=== PATIENT | male | born 1950 | race Caucasian/White ===

== ENCOUNTER 2017-07-21 10:47 | Emergency (ER) | payer MEDICARE, OTHER, SELFPAY | END 2017-07-21 12:23 | disposition home or self-care (01) | PROVIDERS: Emergency Provider Emergency Medicine; Family Provider Family Medicine; PCP Family Medicine; Visit Provider Emergency Medicine | DX: S51.811A Laceration without foreign body of right forearm, initial encounter (principal); W45.8XXA Other foreign body or object entering through skin, initial encounter; W22.8XXA Striking against or struck by other objects, initial encounter; Y93.H1 Activity, digging, shoveling and raking; Y92.009 Unspecified place in unspecified non-institutional (private) residence as the place of occurrence of the external cause; Z23 Encounter for immunization | CPT/HCPCS: 12004; 90471; 90714; 99282 ==

== ENCOUNTER → 2020-06-29 09:55 | Outpatient (CLI) | payer MEDICARE, SELFPAY | PROVIDERS: PCP Family Medicine; Visit Provider Family Medicine | DX: Z03.818 Encounter for observation for suspected exposure to other biological agents ruled out (principal) | CPT/HCPCS: U0003 ==

== ENCOUNTER → 2020-11-08 15:30 | Outpatient (CLI) | payer MEDICARE, SELFPAY ==
--- NOTE | 2020-11-08 15:35 | XR_ITS ---
PROCEDURE: XR SHOULDER LT MIN 2V CLINICAL INDICATION: M77.8 Pain COMPARISON: No exams were available for comparison FINDINGS: No fracture or dislocation. No lytic or blastic change. There is normal mineralization. There are mild osteoarthritic changes of the acromioclavicular joint and glenohumeral joint. No significant subacromial stenosis. Other findings:None. IMPRESSION: Mild osteoarthritis Dictated by: Bhavin Martinez MD 11/08/2020 15:48 Bhavin Martinez MD in [place] 11/08/2020 15:48
== END ==
PROVIDERS: PCP Family Medicine; Visit Provider Family Medicine
DX: M77.8 Other enthesopathies, not elsewhere classified (principal)
CPT/HCPCS: 73030

== ENCOUNTER → 2020-11-12 09:19 | Outpatient (CLI) | payer MEDICARE, SELFPAY | PROVIDERS: Visit Provider Family Medicine | DX: Z00.00 Encounter for general adult medical examination without abnormal findings (principal); Z12.5 Encounter for screening for malignant neoplasm of prostate ==

== ENCOUNTER → 2020-11-13 09:23 | Outpatient (CLI) | payer MEDICARE, SELFPAY ==
[2020-11-13 11:07] LABS: Alanine Aminotransferase 23 U/L (12-78); Albumin Level 4.5 g/dl (3.5-5.0); Albumin/Globulin Ratio 1.7 (1.1-1.8); Alkaline Phosphatase 67 U/L (38-126); Anion Gap 12.7 mEq/L (5-15); Aspartate Amino Transferase 28 U/L (17-59); Bilirubin,Total 0.7 mg/dl (0.2-1.3); Blood Urea Nitrogen 28 mg/dl (9-20); Carbon Dioxide 29 mmol/L (22.0-30.0); Chloride 104 mmol/L (98-107); Chol/HDL Ratio 2.6 (1-3.5); Cholesterol 196 mg/dl (140-200); Estimated Glomerular Filt Rate 74 ml/min (>60); GFR (African American) 89 ML/MIN (>60); Globulin 2.6 g/dL (1.3-3.2); Glucose 106 mg/dl (74-100); HDL Cholesterol 76 mg/dl (40-60); Potassium 5.7 mmoL/L (3.5-5.1); Sodium 140 mmol/L (136-145); Total Protein,Serum 7.1 g/dl (6.3-8.2); Triglycerides 66 mg/dl (30-150); VLDL Cholesterol 13 mg/dL (0-40)
[2020-11-13 11:19] LABS: Direct LDL Cholesterol 90.47 mg/dL (100-129)
[2020-11-13 11:38] LABS: Prostate Specific Ag Screen 1.9 ng/ml (0.0-4.0)
[2020-11-13 12:02] LABS: Hemoglobin A1C 5.3 % (4.0-6.0)
== END ==
PROVIDERS: Visit Provider Family Medicine
DX: Z00.00 Encounter for general adult medical examination without abnormal findings (principal); E11.9 Type 2 diabetes mellitus without complications; E78.5 Hyperlipidemia, unspecified; Z12.5 Encounter for screening for malignant neoplasm of prostate
CPT/HCPCS: 36415; 80053; 80061; 83036; G0103

== ENCOUNTER → 2020-11-15 08:23 | Outpatient (CLI) | payer MEDICARE, SELFPAY ==
--- NOTE | 2020-11-15 08:30 | CT_ITS ---
PROCEDURE: CT LUNG SCREENING CLINICAL INDICATION: H/O NICOTINE DEPENDENCE Former smoker Quit smoking 5 years ago 47 pack year smoking history No prior COMPARISON: No exams were available for comparison TECHNIQUE: The exam was performed on a GE Light Speed [address] scanner using 2.90 mGy CTDI. A low dose helical CT CHEST was performed on a multi-detector scanner. All CT scans at the facility use one or more dose reduction, viz: automated exposure control, ma/kV adjustment per patient size (including targeted exams where dose is matched to indication, i.e. head), or iterative reconstruction technique. The LDCT was performed in a facility that meets the criteria for the screening program. Data regarding this exam was submitted to ACR which is an approved registry. The order for this exam indicates that it came as a result of a lung cancer screening counseling shard decision-making visit that included all the elements required of such a visit including smoking cessation. The radiologist interpreting this exam meets the CMS criteria for the LDCT lung cancer screening program. The exam is reported using the Lung-RADS classification scale and reported to the ACR registry. NOTE: This study was performed for the specific purposes of lung cancer screening and is not an alternative to diagnostic chest CT. RADIATION DOSE: CTDI vol(CT dose Index-volume) = 2.90mG DLP (Dose Length Product) = 110.46 mGcm FINDINGS: COPD. Old granulomatous disease. No suspicious pulmonary nodule apparent. OTHER FINDINGS: Coronary artery calcification. A large hypodense lesion is present in the hepatic dome measuring 7 x 5.5 cm. This is approximately 8 Hounsfield units consistent with a hepatic cyst. An 8 mm calcific density is present in the pancreatic head IMPRESSION: Lung-RADS Category 1 Negative Follow-up: Continue annual screening with LDCT in 12 months Dictated by: Bhavin Martinez MD 11/28/2020 14:55 Bhavin Martinez MD in [place] 11/28/2020 14:55
== END ==
PROVIDERS: PCP Family Medicine; Visit Provider Family Medicine
DX: Z87.891 Personal history of nicotine dependence (principal); Z12.2 Encounter for screening for malignant neoplasm of respiratory organs
CPT/HCPCS: 71271

== ENCOUNTER → 2021-01-08 13:34 | Outpatient (CLI) | payer MEDICARE, SELFPAY ==
[2021-01-08 15:26] LABS: Blood Urea Nitrogen 19 mg/dl (9-20); Estimated Glomerular Filt Rate 74 ml/min (>60); GFR (African American) 89 ML/MIN (>60)
== END ==
PROVIDERS: Visit Provider Family Medicine
DX: Z01.818 Encounter for other preprocedural examination (principal)
CPT/HCPCS: 36415; 82565; 84520

== ENCOUNTER → 2021-01-17 08:56 | Outpatient (CLI) | payer MEDICARE, SELFPAY ==
--- NOTE | 2021-01-17 08:59 | CT_ITS ---
PROCEDURE: CT ABDOMEN PELVIS W CON CLINICAL INDICATION: LESION OF PANCREAS COMPARISON: CT ABDPELW CT abdomen pelvis w con from 12/16/[address] LUNG SCREENING from 11/15/2020 TECHNIQUE: IV Contrast: 75ML Isovue 370 Oral Contrast None Axial images obtained with sagittal and coronal reformats. All CT scans at the facility use one or more dose reduction, viz: automated exposure control, ma/kV adjustment per patient size (including targeted exams where dose is matched to indication, i.e. head), or iterative reconstruction technique. FINDINGS: Lung bases show some scar versus atelectasis. Large cyst in the right lobe of the liver again noted. Mild diffuse fatty infiltration of the liver. No focal hepatic or splenic lesions otherwise noted. Gallbladder adrenal glands are normal. Small calcification in the head of the pancreas again noted. There is a cystic lesion in the head of the pancreas measuring about 2.5 centimeters x 1.2 centimeters with mild dilatation of the pancreatic duct. This may represent a pancreatic IPMN or other cystic pancreatic lesion. At this point I would recommend MRI abdomen with and without IV contrast for further assessment. Small left renal cortical cyst noted. Kidneys otherwise normal. No upper abdominal lymphadenopathy. Some calcification of the abdominal aorta without aneurysm. Kidneys drain normally. Bladder is normal. There is no distended large or small bowel or bowel wall thickening. Moderate amount of stool throughout the colon. Few diverticula on the colon without diverticulitis. Appendix is normal. No enlarged iliac or inguinal chain lymph nodes. No inguinal or femoral hernias. There are moderate diffuse degenerative changes of the lumbar spine. No acute bony abnormality. IMPRESSION: Cystic lesion in the head of the pancreas measuring about 2.5 centimeters x 1.2 centimeters with mild dilatation of the pancreatic duct. This may represent a pancreatic IPMN or other cystic pancreatic lesion. MRI abdomen with and without IV contrast recommended for further assessment. Large cyst in the right lobe of the liver again noted. Mild diffuse fatty infiltration of the liver. No free intraperitoneal air or fluid. Small left renal cortical cyst. Scattered diverticula on the colon without diverticulitis. Moderate amount of stool throughout the colon. Dictated by: Royal Pastor MD 01/17/2021 09:49 Royal Pastor MD in [place] 01/17/2021 09:49
== END ==
PROVIDERS: PCP Family Medicine; Visit Provider Family Medicine
DX: K86.9 Disease of pancreas, unspecified (principal)
CPT/HCPCS: 74177; Q9967

== ENCOUNTER → 2021-02-07 10:43 | Outpatient (CLI) | payer MEDICARE, SELFPAY | PROVIDERS: Visit Provider Internal Medicine Gastroenterology | DX: Z01.812 Encounter for preprocedural laboratory examination (principal); Z20.822 Contact with and (suspected) exposure to COVID-19 | CPT/HCPCS: U0003 ==

== ENCOUNTER 2021-02-08 12:02 | Day surgery (SDC) | payer MEDICARE, SELFPAY ==
[2021-02-05 09:16] VITALS: BMI 24.3
[2021-02-08] VITALS (7 sets, daily range): BP systolic 83–145; BP diastolic 48–80; PULSE 51–89; RESP 16–18; TEMP 36.6–36.8; O2SAT 95–99
--- NOTE | 2021-02-08 12:13 | FL_ITS ---
PROCEDURE: FL ERCP CLINICAL INDICATION: abnormal diagnostic findings COMPARISON: CT CT ABDOMEN PELVIS W CON from 01/17/2021 FINDINGS: Fluoroscopy time: 5 minutes and 30 seconds. Contrast was injected into the common bile duct with normal caliber. No evidence of common duct stones. Pancreatic duct could not be safely cannulated due to an impacted stone as seen on the CT scan. IMPRESSION: Unremarkable biliary tree. Pancreatic ductal system was not able to be imaged. Dictated by: Bhavin Martinez MD 02/11/2021 10:49 Bhavin Martinez MD in [place] 02/11/2021 10:49
--- NOTE | 2021-02-08 12:43 | HMH.ANESCL ---
[facility] Anesthesia Checklist - Patient Identification Patient Identification: Arm Band - Structural Data Admitted From: Home Planned Operative Procedure/s: ERCP Consent for Planned Operative Procedure(s) Verified: Yes - NPO Status Verified Time NPO: 00:00 - Airway Assessment C-Spine Mobility Assessed: Yes TMJ Mobility Assessed: Yes Dentition: Good Dentition - Neurological Assessment Level of Consciousness: Awake Hx Seizures: No Numbness or tingling in extremities: No - Anesthesia Plan Anesthesia Risk discussed: Yes Anesthesia Plan: Verified ASA Class: I Anesthesia Type: MAC [facility] History I have reviewed the patient's past medical history: Yes Medical History: Denies:: Cancer, Diabetes Mellitus Type 1, Diabetes Mellitus Type 2, MRSA, Seizures *Have you ever received a pneumonia vaccine?: Yes *Have you received a flu vaccine this season?: Yes Anesthesia experience/problems:: None Laterality Cases: Bilateral: Cataract Amputation: No - *Social History Last grade of school completed: Advanced degree Smoking Status: Never smoker Alcohol Intake: current Alcohol Intake Frequency:: holidays/special occasions only Substance Use Type: denies use *Occupational Status:: retired Housing: house *Travel in the last 8 weeks: None Family Hx:: Unable to obtain, No significant family history
--- NOTE | 2021-02-08 13:51 | HMH.PROC ---
[facility] Procedure Note Procedure Note:: ERCP procedure Report: Endoscopic retrograde cholangiopancreatography with biliary sphincterotomy Endoscopist: Westley Gunter II, MD Referring Physician: Isaac Dunaway MD Date of Procedure: February 08, 2021 Equipment: Olympus 180 side viewing endoscope duodenoscope Sedation: MAC sedation Indication: Mr. Valencia is a 70-year-old gentleman who had a recent CT scan of the abdomen with contrast for CT lung screening. This did show an initial radiology reading that showed a possible cystic lesion in the head of the pancreas. After reviewing the CAT scan there was a clear change in the pancreas over 2 years with marked pancreatic ductal dilation with a calcified stone in the head of the pancreas but not within the biliary system. There was no cystic lesion identified. The patient has no abdominal complaints. The patient did have a colonoscopy with me in October 2016 and had 5 colon polyps (small serrated adenomas x4 and tubular adenoma x1) which were removed. Procedure: Prior to the procedure, a history and physical exam was performed, and patient's medications and allergies were reviewed. The risks, benefits and alternatives of the sedation and procedure were discussed with the patient. All questions were answered and informed consent was obtained. The patient was brought to the fluoroscopic radiology room. Patient identification and proposed procedure were verified by the physician and the nurse. The patient was placed in a swimmer's position between left lateral decubitus and prone position and the scope was passed under direct vision. Throughout the procedure, the patient's blood pressure, pulse, and oxygen saturations were monitored continuously. The ERCP was accomplished without difficulty. The patient tolerated the procedure well. Findings: The side-viewing duodenal scope was passed directly into the upper esophagus and advanced to the second portion of the duodenum. There was a very small hiatal hernia with nonsignificant lower esophageal ring. There was mild reactive gastropathy. The ampulla was well visualized in the second portion. The common bile duct and pancreatic duct were both cannulated. The cholangiogram showed normal filling of the biliary system with a 3 to 4 mm common bile duct and normal filling of the intrahepatic biliary system. There were no strictures or filling defects within the biliary system. The pancreatic duct was cannulated but the guidewire could not be passed beyond the head of the pancreas. There was clearly an impacted stone within the a pancreatic ductal head. Even with improved access using biliary sphincterotomy, a guidewire could not be passed beyond the pancreatic ductal stone. Because of this impaction, further treatment was not performed. Impression: 1. 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 This can occur in the setting of chronic pancreatitis. If these are deeply impacted, removal mechanically with the balloon poses greater risk than electrohydraulic lithotripsy. The patient is asymptomatic but I do feel that there is a significant risk of progression towards chronic pancreatitis with endocrine/exocrine insufficiency. I am going to obtain CA 19-9 and pancreatic chemistries today. The patient's liver chemistries are normal.
[2021-02-08 15:12] LABS: Amylase 72 U/L (30-110); Lipase 274 U/L (23-300)
[2021-02-10 08:37] LABS: CA 19-9 16 U/mL (0-35); CEA 2.1 ng/mL (0.0-4.7)
== END 2021-02-08 15:00 | disposition home or self-care (01) ==
LOC: OUTP 12:03
PROVIDERS: PCP Family Medicine; Visit Provider Internal Medicine Gastroenterology
PROC: (CPT 43277; principal; 2021-02-08 13:00)
DX: R93.5 Abnormal findings on diagnostic imaging of other abdominal regions, including retroperitoneum (principal); K86.89 Other specified diseases of pancreas; C25.0 Malignant neoplasm of head of pancreas
CPT/HCPCS: 43277; 36415; 74330; 82150; 82378; 83690; 86316; J2704

== ENCOUNTER → 2021-04-11 08:02 | Outpatient (CLI) | payer MEDICARE, SELFPAY ==
[2021-04-11 08:31] LABS: Blood Urea Nitrogen 26 mg/dl (9-20); Estimated Glomerular Filt Rate 74 ml/min (>60); GFR (African American) 89 ML/MIN (>60)
--- NOTE | 2021-04-11 08:36 | MR_ITS ---
PROCEDURE INFORMATION: Exam: MR Abdomen Without and With Contrast Exam date and time: 04/11/2021 8:36 AM Age: 71 years old Clinical indication: Abdominal pain; Generalized; Patient HX: F/u to CT scan done 01/17/2021, cystic lesion in the head of the pancreas measuring about 2.5 centimeters x 1.2 centimeters with mild dilatation of the pancreatic duct. This May represent a pancreatic ipmn or other cystic pancreatic lesion. Mri abdomen with and without iv contrast recommended for further assessment. 16 ml prohance used for contrast bun 26 creat 1 gfr 74; Additional info: Pancreatic mass TECHNIQUE: Imaging protocol: MR of the abdomen without and with intravenous contrast. Contrast material: PROHANCE; Contrast volume: 16 ml; Contrast route: IV; COMPARISON: CT ABDOMEN PELVIS W CON 01/17/2021 9:12 AM FINDINGS: Liver: There is a large central cyst identified within the liver. This is within the right hepatic lobe. It measures 8.4 x 7.0 cm in size. Gallbladder and bile ducts: Unremarkable. No stones. No ductal dilation. Pancreas: There is a mass present within the pancreatic head. This is at the junction of the pancreatic head and the uncinate process. It corresponds to abnormality seen on computed tomography of the abdomen and pelvis with contrast 01/17/2021. It measures 2.3 x 2.7 cm in size. On the CT examination there is a coarse calcification associated with the mass. There is dilatation of the main pancreatic duct distal to the mass. Cystic components are difficult to appreciate on the MR examination. Post gadolinium images demonstrate enhancement of the mass. Primary diagnostic consideration would be a primary mass such as a pancreatic neuroendocrine tumor or a papillary mucinous neoplasm. The possibility of a benign lesion such as focal chronic pancreatitis is less likely however not entirely excluded. Spleen: Unremarkable. No splenomegaly. Adrenal glands: Unremarkable. No mass. Kidneys and ureters: There is a 1.4 cm peripelvic cyst of the interpolar region of the left kidney. It is benign in nature. No follow-up imaging is recommended. No solid mass. No hydronephrosis. Stomach and bowel: Visualized stomach and intestines are unremarkable. Intraperitoneal space: No free fluid. Arteries: No abdominal aortic aneurysm. Bones/joints: Unremarkable. Soft tissues: Unremarkable. IMPRESSION: There is a 2.3 x 2.7 cm mass within the pancreatic head which contains central coarse calcification. There is enhancement after gadolinium administration. There is dilatation of the main pancreatic duct distal to the mass. Primary diagnostic consideration would be a calcified neoplasm of the pancreatic head. Considerations include a pancreatic neuroendocrine tumor or a papillary mucinous neoplasm. The possibility of unusual presentation of chronic pancreatitis is less likely however not entirely excluded.
== END ==
PROVIDERS: PCP Family Medicine; Visit Provider Internal Medicine Gastroenterology
DX: K86.89 Other specified diseases of pancreas (principal); R93.3 Abnormal findings on diagnostic imaging of other parts of digestive tract
CPT/HCPCS: 36415; 74183; 76376; 82565; 84520; A9576

== ENCOUNTER → 2021-04-22 10:48 | Outpatient (CLI) | payer MEDICARE, SELFPAY | PROVIDERS: PCP Family Medicine; Visit Provider Nurse Practitioner | DX: Z20.822 Contact with and (suspected) exposure to COVID-19 (principal) | CPT/HCPCS: C9803; U0003; U0005 ==

== ENCOUNTER → 2021-04-25 11:43 | Outpatient (CLI) | payer MEDICARE, SELFPAY | PROVIDERS: PCP Family Medicine; Visit Provider Nurse Practitioner | DX: Z20.822 Contact with and (suspected) exposure to COVID-19 (principal) | CPT/HCPCS: C9803; U0003; U0005 ==

== ENCOUNTER → 2021-08-05 14:51 | Outpatient (CLI) | payer MEDICARE, SELFPAY ==
--- NOTE | 2021-08-05 15:07 | XR_ITS ---
FINAL REPORT TECHNIQUE: Chest PA & Lateral CLINICAL HISTORY: PRIOR SMOKER,PRE-OP FINDINGS: 2 views of the chest were performed. The heart size is normal. The mediastinum is within normal limits. There is no acute cardiopulmonary process. There are no pleural effusions. There is no pneumothorax. The bony thorax appears intact. IMPRESSION: No acute cardiopulmonary process. Reviewed, Interpreted and Dictated by Alvaro Cohen MD Transcribed by Noemy Portillo Authenticated by Alvaro Cohen MD on 08/05/2021 04:58:21 PM [facility]
--- NOTE | 2021-08-05 15:38 | ECG_ITS ---
APPROVED REPORT Exam: Resting ECG HR:60 bpm ECG Measurements Heart Rate 60 AXES FL 156 P 62 QRSd 84 QRS -33 QT 422 T 19 QTc 422 Conclusion Normal sinus rhythm Possible Left atrial enlargement Left axis deviation Left ventricular hypertrophy Abnormal ECG Electronically signed by : Ben Mario MD 08/05/2021 21:33:10
== END ==
PROVIDERS: PCP Family Medicine; Visit Provider Family Medicine
DX: Z01.818 Encounter for other preprocedural examination (principal)
CPT/HCPCS: 71046; 93005

== ENCOUNTER → 2021-08-06 09:58 | Outpatient (CLI) | payer MEDICARE, SELFPAY ==
[2021-08-06 10:51] LABS: Chloride 102 mmol/L (98-107)
[2021-08-06 10:52] LABS: Potassium 4.5 mmoL/L (3.5-5.1); Sodium 139 mmol/L (136-145)
[2021-08-06 10:54] LABS: Alanine Aminotransferase 21 U/L (12-78); Alkaline Phosphatase 63 U/L (38-126); Anion Gap 10.5 mEq/L (5-15); Aspartate Amino Transferase 31 U/L (17-59); Bilirubin,Total 0.6 mg/dl (0.2-1.3); Blood Urea Nitrogen 28 mg/dl (9-20); Carbon Dioxide 31 mmol/L (22.0-30.0); Estimated Glomerular Filt Rate 74 ml/min (>60); GFR (African American) 89 ML/MIN (>60)
[2021-08-06 10:55] LABS: Albumin Level 4.1 g/dl (3.5-5.0); Albumin/Globulin Ratio 1.6 (1.1-1.8); Calcium 9.2 mg/dl (8.4-10.2); Globulin 2.5 g/dL (1.3-3.2); Glucose 104 mg/dl (74-100); Total Protein,Serum 6.6 g/dl (6.3-8.2)
[2021-08-06 12:09] LABS: Basophils # 0.1 K/mm3 (0-0.2); Basophils % 1.1 % (0.1-2.0); Eosinophils # 0.2 K/mm3 (0.0-0.4); Eosinophils % 3.1 % (0.1-12.0); Hemoglobin 14.7 g/dL (14.1-18.0); Lymphocytes # 1.5 K/mm3 (0.7-4.5); Lymphocytes % 27.9 % (10-50); Mean Corpuscular HGB Conc 32.7 g/dL (31.8-35.4); Mean Corpuscular Hemoglobin 30.8 pg (27.0-31.2); Mean Corpuscular Volume 94.3 fl (80-94); Mean Platelet Volume 8.9 fl (7.4-10.4); Monocytes # 0.3 K/mm3 (0.1-1.0); Monocytes % 5.8 % (1.7-9.3); Neutrophils # 3.3 K/mm3 (1.8-7.8); Neutrophils % 62.2 % (37.0-80.0); Platelet Count 208 K/mm3 (142-424); Red Blood Count 4.77 M/mm3 (4.60-6.20); Red Cell Distribution Width 13.2 % (11.5-17.5); White Blood Count 5.3 K/mm3 (4.8-10.8)
== END ==
PROVIDERS: Visit Provider Family Medicine
DX: Z01.818 Encounter for other preprocedural examination (principal); Z51.81 Encounter for therapeutic drug level monitoring
CPT/HCPCS: 80053; 85025

== ENCOUNTER → 2021-08-07 08:31 | Outpatient (CLI) | payer MEDICARE, SELFPAY ==
[2021-08-07 09:07] LABS: Activated Partial Thrombo Time 25.3 seconds (22.8-30.6); INR 1.07 (0.9-1.1)
== END ==
PROVIDERS: Visit Provider Family Medicine
DX: Z01.818 Encounter for other preprocedural examination (principal); Z51.81 Encounter for therapeutic drug level monitoring
CPT/HCPCS: 85610; 85730

== ENCOUNTER → 2021-08-08 11:03 | Outpatient (CLI) | payer MEDICARE, SELFPAY | PROVIDERS: Visit Provider Nurse Practitioner | DX: Z20.822 Contact with and (suspected) exposure to COVID-19 (principal) | CPT/HCPCS: C9803; U0003; U0005 ==

== ENCOUNTER → 2021-08-09 13:13 | Outpatient (CLI) | payer MEDICARE, SELFPAY ==
--- NOTE | 2021-08-09 13:16 | CA_ITS ---
APPROVED REPORT EXAM: Comprehensive 2D, Doppler, and color-flow Echocardiogram Change Control Manager: Patricia Lackey, RT(R) Ht: 5 ft 10 in Wt: 172lbs BSA: 1.96 BP: 118/78 mmHg Indications: preop clearance, HTN, abn EKG 2D Dimensions LVOT 1.87 cm (M/F) 1.5-2.5 M-Mode Dimensions RVDd 2.83 cm (0.9-2.6) LA Diam 3.44 cm (1.9-4.0) LVDd 4.55 cm (3.5-5.7) Ao Diam 3.30 cm (2.0-3.7) LVDs 3.37 cm (3.5-5.7) IVSd 0.75 cm (0.6-1.1) PWd 1.04 cm (0.6-1.1) EF (Teich) 51.10% FS 25.90% EDV (Teich) 94.90 mL ESV (Teich) 46.40 mL LV Diastology E Decel Time 220.00 (160-240 msec) E/A Ratio 0.7 MED E' 8.90 (< 7 cm/sec) E'/MED E' Ratio 6.70 (>14) LAT E' 11.40 (<10 cm/sec) E/LAT E' Ratio 5.23 (>14) Mitral Valve MV E Max Deon. 60.00 (40-130 cm/s) MV A Velocity 84.00 (40-130 cm/s) E/A Ratio 0.71 MV Decel. Time 220.00 (160-240 ms) MV PHT 64.00 ms Left Ventricle Atrium is mildly enlarged, left ventricle is normal size, mild concentric left ventricular hypertrophy, visually estimated ejection fraction 55% with no regional wall motion abnormality, grade 1 diastolic dysfunction seen without tissue Doppler evidence of raise left atrial pressure. Right Ventricle Right atrium and right ventricle are normal size and contractility. Aortic Valve Aortic valve is minimally thickened and calcified without aortic stenosis or aortic insufficiency. Mitral Valve Mitral valve is grossly normal, there is trace mitral regurgitation. Tricuspid Valve Tricuspid valve grossly normal, there is trace tricuspid regurgitation, tricuspid regurgitation jet velocity is inadequate for calculation of the right ventricular systolic pressure. Pulmonic Valve Pulmonic valve is poorly visualized. Great Vessels Aortic root is normal size. Inferior vena cava is normal size with normal inspiratory collapse. Pericardium Significant pericardial effusion noted. Conclusion 1. Normal left ventricular size, preserved left ventricular systolic function, visually estimated ejection fraction 55% with no regional wall motion abnormality, grade 1 diastolic dysfunction seen without tissue Doppler evidence of raise left atrial pressure. 2. Trace mitral and tricuspid regurgitation. 3. No significant pericardial effusion. 4. Inferior vena cava is normal size with normal inspiratory collapse. Electronically signed by : Eliel Foreman MD 08/09/2021 14:26:32
== END ==
PROVIDERS: PCP Family Medicine; Visit Provider Family Medicine
DX: I51.7 Cardiomegaly (principal); R94.31 Abnormal electrocardiogram [ECG] [EKG]
CPT/HCPCS: 93306

== ENCOUNTER → 2021-12-06 13:05 | Outpatient (CLI) | payer MEDICARE, SELFPAY | PROVIDERS: PCP Family Medicine; Visit Provider Family Medicine | DX: U07.1 COVID-19 (principal) | CPT/HCPCS: C9803; U0003; U0005 ==

== ENCOUNTER 2023-08-05 08:27 | Outpatient (CLI) | payer MEDICARE, SELFPAY ==
[2023-08-05 08:57] LABS: Basophils % 0.2 % (0.1-2.0); Eosinophils # 0.1 K/mm3 (0.0-0.4); Eosinophils % 0.5 % (0.1-12.0); Hematocrit 46.8 % (42.0-52.0); Hemoglobin 15.7 g/dL (14.1-18.0); Lymphocytes % 11.6 % (10-50); Mean Corpuscular HGB Conc 33.7 g/dL (31.8-35.4); Mean Corpuscular Hemoglobin 30.7 pg (27.0-31.2); Mean Platelet Volume 8.6 fl (7.4-10.4); Monocytes # 0.4 K/mm3 (0.1-1.0); Monocytes % 4.2 % (1.7-9.3); Neutrophils # 7.4 K/mm3 (1.8-7.8); Neutrophils % 83.5 % (37.0-80.0); Platelet Count 206 K/mm3 (142-424); Red Blood Count 5.14 M/mm3 (4.60-6.20); White Blood Count 8.9 K/mm3 (4.8-10.8)
[2023-08-05 09:45] LABS: Alanine Aminotransferase 30 U/L (12-78); Albumin Level 4.6 g/dl (3.5-5.0); Albumin/Globulin Ratio 1.8 (1.1-1.8); Alkaline Phosphatase 66 U/L (38-126); Anion Gap 10.8 mEq/L (5-15); Aspartate Amino Transferase 35 U/L (17-59); Bilirubin,Total 0.7 mg/dl (0.2-1.3); Blood Urea Nitrogen 31 mg/dl (9-20); Calcium 9.3 mg/dl (8.4-10.2); Carbon Dioxide 28 mmol/L (22.0-30.0); Chloride 101 mmol/L (98-107); Chol/HDL Ratio 3.1 (1-3.5); Cholesterol 187 mg/dl (140-200); Estimated Glomerular Filt Rate 73 ml/min (>60); GFR (African American) 89 ML/MIN (>60); Globulin 2.5 g/dL (1.3-3.2); Glucose 115 mg/dl (74-100); HDL Cholesterol 60 mg/dl (40-60); Potassium 4.8 mmoL/L (3.5-5.1); Sodium 135 mmol/L (136-145); Total Protein,Serum 7.1 g/dl (6.3-8.2); Triglycerides 46 mg/dl (30-150); VLDL Cholesterol 9 mg/dL (0-40)
[2023-08-05 09:56] LABS: Direct LDL Cholesterol 96.09 mg/dL (100-129)
[2023-08-05 10:16] LABS: Prostate Specific Ag Screen 1.7 ng/ml (0.0-4.0)
== END 2023-08-05 23:59 ==
LOC: LAB 08:28
PROVIDERS: PCP Family Medicine; Visit Provider Family Medicine
DX: R59.0 Localized enlarged lymph nodes; Z13.220 Encounter for screening for lipoid disorders; Z12.5 Encounter for screening for malignant neoplasm of prostate; I10 Essential (primary) hypertension
CPT/HCPCS: 36415; 80053; 80061; 85025; G0103

== ENCOUNTER 2023-08-20 08:25 | Outpatient (CLI) | payer MEDICARE, SELFPAY ==
--- NOTE | 2023-08-20 08:28 | CT_ITS ---
FINAL REPORT TECHNIQUE: Thin section axial images were obtained from the lung apices to the upper abdomen by computed tomography. Reformatted images were obtained and reviewed. This study was performed with techniques to keep radiation doses al low as reasonably achievable (ALARA). Individualized dose reduction techniques using automated exposure control or adjustment of mA and/or kV according to the patient's size were employed. CLINICAL HISTORY: H/O TOBACCO USE former smoker x 10 yrs ago 1.5 packs for 42 years COMPARISON: 11/15/2020 FINDINGS: CHEST CT LOW DOSE CTDI vol (mGy): 2.90 DLP (mGy-cm): 114.64 There is moderate coronary artery calcification. There is no axillary adenopathy. There is no mediastinal or hilar mass or adenopathy. The heart is normal in size. There is no pericardial or pleural effusion. There is mild pulmonary scarring. There is a 3 mm nodule at the major fissure which is stable, likely intra fissural node. Limited images of the upper abdomen reveal a large low-attenuation mass in the liver dome measuring 10 cm, was 7.2 cm, favor large cyst. Multiple pancreatic calcifications are identified consistent with chronic pancreatitis. IMPRESSION: Lung-RADS category 1S. Recommend 12 month follow up low dose chest CT. Modifier S: Large cyst in the liver dome. Postcontrast CT or MRI could further evaluate. Chronic pancreatitis. Reviewed, Interpreted and Dictated by Jeovany Cavazos III, MD Transcribed by Deidre Ware Authenticated and [facility]
== END 2023-08-20 23:59 ==
LOC: RAD 08:25
PROVIDERS: PCP Family Medicine; Visit Provider Family Medicine
DX: Z87.891 Personal history of nicotine dependence (principal)
CPT/HCPCS: 71271

== ENCOUNTER 2023-09-14 13:01 | Outpatient (CLI) | payer MEDICARE, SELFPAY ==
--- NOTE | 2023-09-14 13:01 | CT_ITS ---
FINAL REPORT TECHNIQUE: Thin section axial CT images with coronal and sagittal reformats were performed through the neck. This study was performed with techniques to keep radiation doses as low as reasonably achievable (ALARA). Individualized dose reduction techniques using automated exposure control or adjustment of mA and/or kV according to the patient''s size were employed. CLINICAL HISTORY: swollen LEFT submandibular galnd FINDINGS: There is a retention cyst or polyp in the floor of the left maxillary sinus. Stranding is seen adjacent to the left submandibular gland consistent with sialadenitis. There is a 6 mm calcification at the left floor of the mouth consistent with stone in the left Hampton's duct. There are coronary artery calcifications noted. No adenopathy or mass lesion is present . Larynx is unremarkable. Thyroid gland is unremarkable. IMPRESSION: Stranding adjacent to the left submandibular gland consistent with sialoadenitis. 6 mm stone in the left Hampton's duct. Reviewed, Interpreted and Dictated by Jeovany Cavazos III, MD Transcribed by Carmen Mc Authenticated and [facility]
== END 2023-09-14 23:59 ==
LOC: RAD 13:01
PROVIDERS: PCP Family Medicine; Visit Provider Student in an Organized Health Care Education/Training Program
DX: K11.20 Sialoadenitis, unspecified (principal)
CPT/HCPCS: 70490

== ENCOUNTER 2023-10-06 08:34 | Outpatient (CLI) | payer MEDICARE, SELFPAY ==
--- NOTE | 2023-10-06 08:41 | XR_ITS ---
FINAL REPORT CLINICAL HISTORY: rt shoulder/arm pain FINDINGS: Right shoulder Three views were obtained. There is no acute fracture or dislocation. There is mild AC and glenohumeral joint degenerative change. No soft tissue abnormality is identified. IMPRESSION: Mild degenerative changes. Reviewed, Interpreted and Dictated by Jeovany Cavaozs III, MD Transcribed by Deidre Ware Authenticated and [facility]
== END 2023-10-06 23:59 ==
LOC: RAD 08:35
PROVIDERS: PCP Family Medicine; Visit Provider Orthopaedic Surgery
DX: M25.511 Pain in right shoulder (principal)
CPT/HCPCS: 73030

== ENCOUNTER 2024-09-22 09:23 | Outpatient (CLI) | payer MEDICARE, SELFPAY ==
--- NOTE | 2024-09-22 09:26 | CT_ITS ---
FINAL REPORT TECHNIQUE: Axial images were obtained from the lung apex to the mid abdomen by computed tomography. This study was performed with techniques to keep radiation doses as low as reasonably achievable (ALARA). Individualized dose reduction techniques using automated exposure control or adjustment of mA and/or kV according to the patient's size were employed. CLINICAL HISTORY: SCREENING FORMER SMOKER QUIT 5 YEARS AGO 1PPD X40 YEARS COMPARISON: 08/20/2023 FINDINGS: CHEST CT LOW DOSE CTDI vol (mGy): 2.90 DLP (mGy-cm): 113.85 There is no axillary adenopathy. There is no hilar or mediastinal adenopathy. The heart is normal in size. Mildly prominent coronary artery calcifications are identified. There is no pericardial or pleural effusion. Lung window images demonstrate no suspicious infiltrate or nodule. There is a small calcified nodule along the right major fissure consistent with a granuloma. Limited images of the upper abdomen show a large cyst in the liver dome, unchanged from prior. Calcifications of the pancreas are consistent with chronic pancreatitis. IMPRESSION: Lung RADS category 1S. Recommend 12 month follow-up low-dose chest CT. No suspicious pulmonary nodule. Chronic findings of the upper abdomen. Modifier S: Prominent coronary artery calcification Reviewed, Interpreted and Dictated by Libia Turcios MD Transcribed by Deidre Ware Authenticated and [facility]
== END 2024-09-22 23:59 | disposition home or self-care (01) ==
LOC: RAD 09:23
PROVIDERS: PCP Family Medicine; Visit Provider Family Medicine
DX: Z87.891 Personal history of nicotine dependence (principal); Z12.2 Encounter for screening for malignant neoplasm of respiratory organs
CPT/HCPCS: 71271

== ENCOUNTER 2024-10-03 07:59 | Outpatient (CLI) | payer MEDICARE, SELFPAY ==
[2024-10-03 08:17] LABS: Basophils # 0.1 K/mm3 (0-0.2); Eosinophils # 0.3 K/mm3 (0.0-0.4); Hematocrit 42.5 % (42.0-52.0); Hemoglobin 14.3 g/dL (14.1-18.0); Lymphocytes # 1.7 K/mm3 (0.7-4.5); Mean Corpuscular HGB Conc 33.6 g/dL (31.8-35.4); Mean Corpuscular Hemoglobin 29.9 pg (27.0-31.2); Mean Corpuscular Volume 88.9 fl (80-94); Mean Platelet Volume 10.3 fl (7.4-10.4); Monocytes # 0.6 K/mm3 (0.1-1.0); Monocytes % 9.3 % (1.7-9.3); Neutrophils # 4.1 K/mm3 (1.8-7.8); Neutrophils % 60.4 % (37.0-80.0); Platelet Count 221 K/mm3 (142-424); Red Blood Count 4.78 M/mm3 (4.60-6.20); Red Cell Distribution Width 11.9 % (11.5-17.5); White Blood Count 6.8 K/mm3 (4.8-10.8)
[2024-10-03 08:56] LABS: Albumin Level 4.5 g/dl (3.5-5.0); Chloride 99 mmol/L (98-107); Potassium 4.3 mmoL/L (3.5-5.1); Sodium 137 mmol/L (136-145)
[2024-10-03 08:58] LABS: Blood Urea Nitrogen 35 mg/dl (9-20); Estimated Glomerular Filt Rate 73 ml/min (>60); GFR (African American) 88 ML/MIN (>60)
[2024-10-03 08:59] LABS: Alanine Aminotransferase 32 U/L (12-78); Albumin/Globulin Ratio 1.8 (1.1-1.8); Alkaline Phosphatase 88 U/L (38-126); Anion Gap 10.3 mEq/L (5-15); Aspartate Amino Transferase 40 U/L (17-59); Bilirubin,Total 0.7 mg/dl (0.2-1.3); Calcium 9.3 mg/dl (8.4-10.2); Carbon Dioxide 32 mmol/L (22.0-30.0); Chol/HDL Ratio 3.1 (1-3.5); Cholesterol 184 mg/dl (140-200); Globulin 2.5 g/dL (1.3-3.2); Glucose 110 mg/dl (74-100); HDL Cholesterol 60 mg/dl (40-60); Triglycerides 109 mg/dl (30-150); VLDL Cholesterol 22 mg/dL (0-40)
[2024-10-03 09:10] LABS: Direct LDL Cholesterol 82.33 mg/dL (100-129)
[2024-10-03 10:19] LABS: Prostate Specific Ag Screen 2.7 ng/ml (0.0-4.0)
== END 2024-10-03 23:59 | disposition home or self-care (01) ==
LOC: LAB 08:01
PROVIDERS: PCP Family Medicine; Visit Provider Family Medicine
DX: E78.5 Hyperlipidemia, unspecified (principal); Z12.5 Encounter for screening for malignant neoplasm of prostate
CPT/HCPCS: 36415; 80053; 80061; 85025; G0103

== ENCOUNTER 2025-01-20 07:25 | Outpatient (CLI) | payer MEDICARE, SELFPAY ==
--- OUTSIDE RECORDS SUMMARY | 2025-01-20 07:31 | XMS_ITS | Data Portability ---
Author Organization [facility] MIKE Bruce CANTON CLOSED Address [address] [facility] [address] [place] [address] Assessment Encounter Date Assessment Date Assessment LastModified by Organization Details LastModified Time 06/17/2019 06/17/2019 f/u yearly nishant Not available 15:30:52 02/28/2020 02/28/2020 f/u yearly nishant Not available 14:14:34 07/08/2022 07/08/2022 f/u in 6 months [email or web address] Not available 07/08/2022 10:36:47 Plan of Treatment Reminders Order Date Submit Date Provider Last Modified By Organization Details Last Modified Time Details Appointments None recorded. Lab surgical pathology study 2022 023 [facility], [address] [place] [address], [id number], 3 11:09:33 Referral None recorded. Procedures None recorded. Surgeries None recorded. Imaging None recorded. Medication Orders None recorded. Patient TargetsNo targets recorded. Patient Instructions Encounter Date Encounter Id Patient Instructions Last Modified By Organization Details Last Modified Time 06/17/2019 [id number] Education: We discussed the potential diagnostic options, options for further evaluation and treatments, and the risks and benefits of each. nishant Not available 06/17/2019 15:30:58 02/28/2020 [id number] Education: We discussed the potential diagnostic options, options for further evaluation and treatments, and the risks and benefits of each. nishant Not available 02/28/2020 14:14:34 07/08/2022 [id number] Education: We discussed the potential diagnostic options, options for further evaluation and treatments, and the risks and benefits of each. [email or web address] Not available 07/08/2022 07:22:10 09/03/2022 [id number] If any lesions change, or if any other new or symptomatic lesions occur, patient understands to return to the clinic for further evaluation Discussed sun precautions; SPF 30+ [email or web address] Not available 09/02/2022 10:34:57 Reason for Referral None Reported. Results Created Date Observation Date Name Description Value Unit Range Abnormal Flag Note LastModifiedBy Organization Detail LastModifiedTime 06/14/20 19 06/14/2019 surgi emily patho logy study surgical SEE BELOW Depar tment of Patho logy Surgi emily Patho logy Repor t NAME: JOSSE HARTMAN WHIT PATH. :SC-[id number] Copy to: Diagn osis: A) Right lower nasol abial creas e: -Squa mous cell carci noma. -Tumo r prese nt at [facility]. B) Left sideb urn: -Nodu lar basal cell carci noma. -Tumo r prese nt at [facility]. SOURC E OF SPECI MEN: SKIN BIOPS Y, RIGHT LOWER NL CREAS E SKIN BIOPS Y, LEFT SIDEB URN CLINI EMILY INFOR MATIO N: D48.5 A) REC SCC B) ? BCC Gross Descr iptio n: A) Recei jessica in forma tiarra label ed with the patie nt's name and desig nated as righ t lower nasol abial creas e is a shave biops y of skin (0.5 x 0.4 x 0.1 cm). The epide rmal surfa ce is white and rough ened. The dinora n is inked blue. The speci men is bisec yumiko and entir bill submi tted in one casse tte. B) Recei jessica in forma tiarra label ed with the patie nt's name and desig nated as left sideb urn is a shave biops y of skin (0.6 x 0.5 x 0.1 cm). The epide rmal surfa ce is white -leone and rough ened. The dinora n is inked blue. The speci men is bisec yumiko and entir bill submi tted in one casse tte. JAB 06/15 11:34 AM Micro scopi c Descr iptio n: A micro scopi c exami natio n has been perfo rmed. MD Chaya RASMUSSEN Out Date: 06/16 10:56 Page 1 of 1 Not Available [facility] [address] [place], [address], 06/16/2019 10:57:33 08/25/19 23 08/25/2022 SURGI EMILY surgical SEE BELOW Depar tment of Patho logy Surgi emily Patho logy Repor t NAME: JOSSE HARTMAN RD PATH. :[id number] Copy to: Diagn osis: Left sideb urn: Basal cell carci noma, nodul ar type; incom plete ly excis ed. SOURC E OF SPECI MEN: SKIN BIOPS Y, LEFT SIDEB URN CLINI EMILY INFOR MATIO N: D48.5 R/O BCC Gross Descr iptio n: Recei jessica in forma tiarra label ed with the patie nt's name and desig nated as left sideb urn are two shave biops y of skin. The first biops y measu res 0.3 x 0.2 x 0.1 cm. The epide rmal surfa ce is white and rough ened. The dinora ns are inked blue and submi tted en face. The secon d biops y measu res 0.6 x 0.5 x 0.1 cm. The epide rmal surfa ce is white and ulcer ated. The dinora ns are inked green and the speci men is bisec yumiko. Both biops ies are entir bill submi tted in a singl e casse tte. MT 08/25 04:27 PM Micro scopi c Descr iptio n: A micro scopi c exami natio n has been perfo rmed and the resul t(s) are as noted above . ERMIAS SMITH M.D. Chaya d Out Date: 08/26 11:08 Page 1 of 1 Not Available [facility] [address] [place], [address], 08/26/2022 11:09:33 09/03/1909/03/2022 SURGI EMILY surgical SEE BELOW Depar tment of Patho logy Surgi emily Patho logy Repor t NAME: JOSSE HARTMAN PATH. :[facility] [id number] Copy to: Diagn osis: Left sideb urn, excis ion: Resid ual basal cell carci noma with previ ous biops y site wren es. Dinora ns free. SOURC E OF SPECI MEN: SKIN, WIDE EXCIS ION, LEFT SIDEB URN CLINI EMILY INFOR MATIO N: D48.5 EXCIS ION BCC TAGGE D SUPER IOR PRIOR CASE SC- -241 Gross Descr iptio n: Recei jessica in forma tiarra label ed with the patie nt's name and desig nated left sideb urn is an excis ion of skin (2 x 1 x 0.6 cm). There is a surgi emily sutur e at one tip of the speci men indic ating the super ior dinora n which is re-de signa yumiko as 12 o'waylon ck. The epide rmal surfa ce is leone and rough ened with a centr ally locat ed red-b rown biops y site measu ring 0.7 x 0.6 cm. The speci men is seria lly secti oned perpe ndicu lar to the 12 o'waylon ck to 6 o'waylon ck axis and entir bill submi tted seque ntial ly in 3 block s. Ink code: Blue = 12 - 3 - 6 o'waylon ck Green = 6 - 9 - 12 o'waylon ck LP 09/03 08:05 PM ERMIAS SMITH M.D. Chaya d Out Date: 09/04 10:24 Page 1 of 1 Not Available [facility] [address] [place], [address], 09/04/2022 10:25:18 Result Notes None recorded. Problems No Known Problems Procedures Surgical History Date Name Laterality Status Provider Name and Address Organization Details Recorded Time 09/03/19 Wound Repair; Intermediate completed NAGI MEEKS DO [address] [place], [address], [facility] 09/03/2022 17:01:40 09/03/19 23 Excision MN Lesion; face, ear, eyelid, nose, lip, muc memb completed NAGI MEEKS DO [address] [place], [address], [facility] 09/03/2022 17:01:32 08/25/19 23 Biopsy Skin Lesion; Tangential completed [facility] 08/25/2022 11:17:34 08/25/19 Destruction BN Lesions completed [facility] 08/25/2022 11:27:06 07/08/20 22 Destruction BN Lesions completed Devora Landa [facility] 07/08/2022 10:42:21 02/28/20 20 Destruction BN Lesions completed [facility] 02/28/2020 14:48:04 06/17/20 19 Destruction MN Lesion; face, ear, eyelid, nose, lip completed [facility] 06/17/2019 16:29:55 06/14/20 19 Biopsy Skin Lesion; Tangential completed [facility] 06/14/2019 16:09:46 Imaging Results None recorded. Procedure Notes None recorded. Medical Equipment None Reported. Allergies No known drug allergies Medications Not known to be on any medication Vitals None Recorded Social History None recorded. Functional Status None recorded. Mental Status None recorded. Family History Nothing Reported. Medical History No medical history recorded. Past Encounters Encounter ID Performer Location Encounter Start Date Encounter Closed Date Diagnosis/Indication Diagnosis SNOMED-CT Code Diagnosis ICD10 Code Diagnosis Note [id number] TONI REECE MD [facility] [address] [place] [address] 06/14/2019 15:40:39 06/15/2019 08:13:04 History of malignant basal cell neoplasm of skin 196485384 Z85.828 Status post BCCs on left jewish, right lower nasal tip, left lower alar rim - doing well History of squamous cell carcinoma of skin 791837325 Z85.828 Status post SCC on right lower NL crease - doing well Lentiginosis 341701545 L 81.4 reassuranc e Neoplasm o f uncertain behavior of skin 16446771 D48.5 ? REC SCC Right lower NL crease scar ? BCC Left sideburn shave bx and base destroyed with ED Sebaceous hyperplasia 23 1244612 L21.8 reassuranc e [id number] MD CLARICE [facility] [address] [place] [address] 06/17/2019 15:27:21 06/20/2019 08:42:53 History of malignant basal cell neoplasm of skin 355299681 Z85.828 Status post BCCs on left jewish, right lower nasal tip, left lower alar rim - doing well History of squamous cell carcinoma of skin 117178121 Z85.828 Status post SCC on right lower NL crease - doing well Squamous c ell carcinoma of skin of face 518477538 C44.320 Recurrent right lower NL crease will send for MOHS Basal cell carcinoma of face 287083634 C44.310 Left sideburn Treated with EDC x 3 [id number] MD CLARICE [facility] [address] [place] [address] 02/28/2020 14:11:19 02/28/2020 15:36:55 History of malignant basal cell neoplasm of skin 419878645 Z85.828 Status post BCCs on left jewish, right lower nasal tip, left lower alar rim, left sideburn - doing well History of squamous cell carcinoma of skin 213282361 Z85.828 Status post SCC on right lower NL crease x 2 - doing well Lentiginosis 450621220 L 81.4 reassuranc e Raised gaye orrheic keratosis 9651933875 91594 L82.1 reassuranc e Inflamed s eborrheic keratosis 981169348 L82.[address] x 16 Hemangioma 265614592 D18 .00 reassuranc e Milia 213706162 L72.0 expressed with 20 G [id number] MD [facility] [address] [place] [address] 07/08/2022 10:05:45 07/08/2022 10:47:59 History of malignant basal cell neoplasm of skin 718421337 Z85.828 Status post BCCs on left jewish, right lower nasal tip, left lower alar rim, left sideburn - doing well History of squamous cell carcinoma of skin 184253501 Z85.828 Status post SCC on right lower NL crease x 2 - doing well Lentiginosis 982426682 L 81.4 reassuranc eRecommend ed Equate Ultra Sunscreen 30+ and sun protecting hats/cloth ing Raised gaye orrheic keratosis 2745186109 33964 L82.1 reassuranc e Inflamed s eborrheic keratosis 154660680 L82.0 LN x 18 Hemangioma 366488589 D18 .00 reassuranc e Neoplasm o f uncertain behavior of skin 09228303 D48.5 Left upper nostril - ? early BCC - photo taken today - JESSIE in 6 months, sooner if worseRight upper lateral deltoid small crust--torito ch [id number] NAGI MEEKS DO [facility] [address] [place] [address] 08/25/2022 10:44:57 08/25/2022 14:34:38 History of malignant basal cell neoplasm of skin 690107561 Z85.828 no recurrence s History of squamous cell carcinoma of skin 254332312 Z85.828 no recurrence s Raised gaye orrheic keratosis 9559568036 42985 L82.1 benign reassuranc eLN x1 on left calf at pt request Neoplasm o f uncertain behavior of skin 44936449 D48.5 left sideburnr/ o bcc shave biopsy performed sent for path see procedure note wound care instructio ns provided patient consents for procedure and photo monitoring Comedone 181936643 L70.0 benignreas suredsever al on neck removed with 11 blade and comedone extractorp t tolerated well Inflamed s eborrheic keratosis 145421341 L82.0 LN x10 on back Skin sensa tion disturbance 60837977 R20.8 isk [id number] NAGI MEEKS DO [facility] [address] [place] [address] 09/03/2022 14:38:44 09/03/2022 15:19:50 Basal cell carcinoma of face 880353370 C44.310 left side burnDiscus sed diagnosisr ecurrent BCCDr E tx via EDC in 2019recomm end treatment with excision r/a/b of procedure discussed with patientinf ormed consent signedsee procedure note Wound care discussed with patient. Leave the bandage on for 24 hrs. Clean the area daily with warm soapy water, and apply polysporin ointment and a bandaid once daily until healed. Call the office if any increase in redness, drainage, or pain. Raised gaye orrheic keratosis 7120858125 81288 L82.1 benign reassuranc eLN left trapezius x1, mid back x1 Health Concerns Section Related Observation LastModified by Organization Detai ls LastModified Time None Recorded Concern Status LastModified by Organization Details LastModified Time None Recorded Advance Directives Directive None Recorded Payers Insurance Date Sequence Insurance Name Policy Number Policy Jimenez Covered Member ID Jimenez Member ID Guarantor Name 02/28/2020 1 [place]ARE[place] Jose Carlos T Box [id number] Jose Carlos T Box 02/28/2020 1 [employer] - PLAN F (MEDICARE SUPPLEMENT) Jose Carlos T Box [id number] Jose Carlos T Box 09/03/2022 1 [employer] (MEDICARE REPLACEMENT/ ADVANTAGE - PPO) Jose Carlos T Box [id number] Jose Carlos T Box Notes Date Note Type Note Provider Name and Address Organization Details Recorded Time 06/17/2019 text/html Est Pt returns f or EDC/BCC on left sideburn and to discussed possible MOHS or EDC on REC SCC on right lower NL crease Denies any other new, changing, or bleeding lesions, or other rashes, feels well , good mood and has no family history of melanoma. TONI REECE [facility] [place], [address], [facility] 06/17/2019 16:33:49 02/28/2020 text/html Est Pt returns f or follow up EDC/BCC on left sideburn and MOHS on REC SCC on right lower NL crease - doing well Patient has multiple areas on face that come and go (+) irr x months, wants some treatment today to those Patient also has a lesion on upper back (+) wont heal no tx, x months Multiple ISKs he wants cryo today Denies any other new, changing, or bleeding lesions, or other rashes, feels well , good mood and has no family history of melanoma. TONI REECE MD [address] [place], [address], [facility] 02/28/2020 15:01:52 07/08/2022 text/html Established PatientMonitor: BCC SCC LOCATION: backDURATION: x yearsSYMPTOMS: raised itch roughTREATMENTS: none check face and nose - nose was crusting but better now Denies any other new, changing, or bleeding lesions, or other rashes, feels well , good mood and has no family history of melanoma. MD Fani [place], [address], [facility] 07/08/2022 11:22:24 08/25/2022 text/html Established Kya ent of Dr. Reece - last seen 1 month ago for FULL SKIN EXAM Presents for SK's on back he would like tx with LNblack heads on neckspot L sideburn h/o bcc, scc Denies any other new or changing lesions. Feels well today. Denies family history of malignant melanoma. [place], [address], [facility] 08/25/2022 12:39:11 09/03/2022 text/html Established PatientPatient presents today for an excision of a BCC on his left sideburnno new, changing, bleeding, or symptomatic lesions to report DO Mac [place], [address], [facility] 09/03/2022 17:03:01
--- OUTSIDE RECORDS SUMMARY | 2025-01-20 07:31 | XMS_ITS | Clinical Summary ---
Author Organization [facility] Address [address] [place] [address] Care Team Providers Care Marketing Summer Intern Name Role Phone Ted Dunaway MD Primary Care Provider [phone] Westley Gunter MD Unavailable [phone] Source Comments This information has been disclosed to you from confidential records protectedfrom disclosure by state law. You shall make no further disclosure of thisinformation without the specific, written, and informed release of theindividual to whom it pertains, or as otherwise permitted by law. A generalauthorization for the release of medical or other information is not sufficientfor the purposes of therelease of HIV test results or diagnoses. [id number] Allergies No known active allergies Medications senna-docusate (SENNA-S) 8.6-50 mg per tablet Take 1 tablet by mouth 2 times a day. 30 tablet 08/19/2021 Active Active Problems No known active problems Family History Medical History Relation Comments Stroke Father Cancer Maternal Uncle Alzheimer's disease Mother Stroke Paternal Aunt Cancer Sister Relation Status Comments Father Maternal Uncle Mother Paternal Aunt Sister Social History Tobacco Use Types Packs/Day Years Used Date Smoking Tobacco: Former Cigarettes Q uit: 08/06/2013 Smokeless Tobacco: Never Alcohol Use Standard Drinks/Week Comments Yes 0 (1 standard drink = 0.6 oz pur e alcohol) 08/06/21: 2x week AUDIT-C Answer Date Recorded Q1: How often do you have a drink containing alc ohol? Monthly or less 08/18/2021 Q2: How many drinks containi ng alcohol do you have on a typical day when you are drinking? 1 or 2 08/18/2021 Q3: How often do you have si x or more drinks on one occasion? Less than monthly 08/18/2021 Sex and Gender Information Value Date Recorded Sex Assigned at Male 08/11/2021 5:03 PM EST Legal Sex Male 10:29 AM EDT Gender Identity Male 08/11/2021 5:03 PM EST Sexual Orientation Straight 08/11/2021 5: 03 PM EST Last Filed Vital Signs Vital Sign Reading Time Taken Comments Blood Pressure 122/76 09/02/2021 1:38 PM EST Pulse 67 09/02/2021 1:38 PM EST Temperature 36.7 C (98 F) 08/19/2021 12:28 PM EST Respiratory Rate 16 08/19/2021 12:28 PM EST Oxygen Saturation 99% 08/19/2021 12:28 PM EST Inhaled Oxygen Concentration 99% 08/19/2021 1 2:28 PM EST Weight 75.8 kg (167 lb) 09/02/2021 1:38 PM EST Height 177.8 cm (5' 10 ) 09/02/2021 1:38 PM EST Body Mass Index 23.96 09/02/2021 1:38 PM EST Plan of Treatment Not on file Insurance [employer] CHOICE PPO MEDICARE [address] [id number] Advance Directives For more information, please contact: [phone] * Full Code (Latest Code Status on File) Date Activated Date Inactivated Comments 08/13/2021 8:57 PM 08/19/2021 7:28 PM Question Answer Comments Intubate for Resp Distress: Yes Initiate CPR/ACLS in event of cardiac arrest: Flash mayo Care Teams Marketing Summer Intern Relationship Specialty Start Date End Date Ted Dunaway MD [address] [place] [address] PCP - General Family Medicine 04/29/21 Westley Gunter MD [address] [place] [address] 05/13/21
--- OUTSIDE RECORDS SUMMARY | 2025-01-20 07:31 | XMS_ITS | Clinical Summary ---
Author Organization [facility] Address [address] [place] [address] Care Team Providers Care Cover Stripper Name Role Phone Unavailable Primary Care Provider Unavailabl e Immunizations Immunization Administration Dates Next Due Influenza, high-dose, quadrivalent 07/06/2023 Pfizer Covid-19 Vaccine 12y+ , Dennis Protein, PF, Cole-Sucrose 07/06/2023 Social History Tobacco Use Types Packs/Day Years Used Date Smoking Tobacco: Never Assessed Sex and Gender Information Value Date Recorded Sex Assigned at Not on file Legal Sex Male 7:50 PM EDT Gender Identity Not on file Sexual Orientation Not on file Plan of Treatment Health Maintenance Due Date Last Done Comments [facility]-Depression Screening 1950 [facility]-Hepatitis C Screening 1950 [facility]-/Child/Adol SDOH Screenings 1950 [facility]- SDOH Screenings 1968 [facility]-Adult SDOH Screenings 1968 [facility]-DTaP,Tdap,and Td Vaccines (1 - Tdap) 1969 CT Colonography 1995 Colonoscopy 1995 FIT-DNA 1995 FIT 1995 FOBT 1995 Sigmoidoscopy 1995 [facility]-Colorectal Cancer Screening 1995 [facility]-Pneumococcal Vaccine: 50+ Years (1 of 1 - PCV) 2000 [facility]-Zoster Vaccines (1 of 2) 2000 BFC-ZOPUS-93 Vaccine (5 - 2023- season) 2024 07/06/2023, 05/27/2021, 09/20/2020, Additional history exists [facility]-RSV Vaccine: 60+ Years or (1 - 1-dose 75+ series) 2025 [facility]-Influenza Vaccine (Season Ended) 2025 07/06/2023 HPV Vaccines Aged Out No longer eligi ble based on patient's age to complete this topic [facility]-HIB Vaccines Aged Out No longer e ligible based on patient's age to complete this topic [facility]-Hepatitis A Vaccines Aged Out No longer eligible based on patient's age to complete this topic [facility]-IPV Vaccines Aged Out No longer e ligible based on patient's age to complete this topic [facility]-Rotavirus Vaccines Aged Out No lo nger eligible based on patient's age to complete this topic
--- NOTE | 2025-01-20 07:34 | US_ITS ---
FINAL REPORT CLINICAL HISTORY: SCREEN/ADULT GENERAL MEDICAL EXAM COMPARISON: None FINDINGS: Sonographic images were obtained of the abdominal aorta. The abdominal aorta measures up to 1.8 cm in greatest dimensions. The common iliac arteries are within normal limits. IMPRESSION: No evidence of aortic aneurysm. Reviewed, Interpreted and Dictated by Libia Turcios MD Transcribed by Abigail South Authenticated and [facility]
== END 2025-01-20 23:59 | disposition home or self-care (01) ==
LOC: RAD 07:29
PROVIDERS: PCP Family Medicine; Visit Provider Family Medicine
DX: Z00.00 Encounter for general adult medical examination without abnormal findings (principal)
CPT/HCPCS: 76770

== ENCOUNTER 2025-04-12 14:16 | Emergency (ER) | payer MEDICARE, SELFPAY ==
--- OUTSIDE RECORDS SUMMARY | 2024-10-11 07:00 | XMS_ITS ---
Author Organization [facility] Address [address] [facility] [address] [facility] [address] [id number] Care Team Providers Care Professor Of Political Science Name Role Phone Ashley Dunaway Primary Care Provider Allergies No Known Allergies Results Component Value Reference Range Notes colonoscopy Reviewed date:01/19/2025 08:34:19 AM Interpretation:pt declined Performing Lab: Notes/Report: pt declined Ultrasound : Aorta Reviewed date:01/22/2025 09:32:29 PM Interpretation:Normal Performing Lab: Notes/Report: Normal REASON FOR VISIT Check Up and an Annual Wellness Visit, Needs Prevnar vaccine Medications Medication SIG (Take, Route, Frequency, Duration) Notes Start Date End Date Status Clotrimazole-Betamethasone 1-0.05 % 1 application Externally Twice a day 08/04/2023 Active Vital Signs Blood pressure systolic 120 mm Hg 10/12/19 25 Blood pressure diastolic 68 mm Hg 025 Heart Rate 78 /min 10/11/2024 Height 70.50 in 10/11/2024 Weight 175.8 lbs 10/11/2024 BMI 24.87 kg/m2 10/11/2024 Encounters Encounter Location Date Provider Diagnosis [facility] [address] [facility] [address] [address] [phone] 10/11/2024 Ashley Dunaway Adult general medica l examination Z00.00 ; Hepatic cyst K76.89 ; SK (seborrheic keratosis) L82.1 and BMI 24.0-24.9, adult Z68.24 Assessments Encounter Date Diagnosis (ICD Code) Assessment Notes Treatment Notes Treatment Clinical Notes Section Notes 10/11/2024 Adult general medical examination (ICD-10 - Z00.00) Patient instructed to return to office Annually for Annual Wellness Visits to include annual screenings of Pain assessment, Functional Ability assessment, Cognitive Ability assessment, Fall Risk assessment, Depression screening and Bladder control screening. 10/11/2024 Hepatic cyst (ICD-10 - K76.89) 10/11/2024 SK (seborrheic keratosis) (ICD-10 - L82.1) 10/11/2024 BMI 24.0-24.9, adult (ICD-10 - Z68.24) Plan Of Treatment Treatment Notes Assessment Notes Adult general medical examination Patien t instructed to return to office Annually for Annual Wellness Visits to include annual screenings of Pain assessment, Functional Ability assessment, Cognitive Ability assessment, Fall Risk assessment, Depression screening and Bladder control screening. Next Appt Details Follow Up: 1 Year, Reason: Progress Notes * Jose Carlos HARTMANOB:1949 (75 yo M)Acc No.[id number]:10/11/2024 Annual Wellness Visit Patient: Jose Carlos CARBONE Provider: Ashley Dunaway M.D. :1950 A ge:74 Y S ex:Male Date:10/11/2024 Address:[address] [place] [id number] Subjective: * Chief Complaints: * 1 . Check Up and an Annual Wellness Visit. 2. Needs Prevnar vaccine. * HPI: H PI: Patient is here today for a scheduled check up and a Medicare Annual Wellness Visit, see lab results drawn 10/03/2024 at [facility] lab. Pt sts he is doing well and has no concerns at this time. * ROS: O PTHALMOLOGY: Negative for d enies vision issues. 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 * Surgical History: B ilateral inguinal hernia repair - Dr. MENARD 03/09/2015, squamous cell removed from face-Dr Warren 07/2019, MILY procedure for chronic pancreatitis/ UC/ Dr. Bloom 08/2021, Excision of salivary duct stone 09/2024. * Hospitalization/Major Diagno stic Procedure: H ER-laceration to right arm 07/21/17. * Family History: F ather: . M other: . P aternal Grand Father: . P aternal Grand Mother: . M aternal Grand Father: . M aternal Grand Mother: .?1 brother(s) , 5 sister(s) . 3 son(s) , 2 daughter(s) . . * Social History: C URRENT TOBACCO USE: No . C affeine: yes, frequency:. Exercise: yes. Home smoke detector use: yes. Marital Status: . New since last visit: none. Occupation: yes. Past smoking status: no, Smoking status: Patient does smoke, Smoking preference: cigars occasional;, Former Smoker: Yes, Quit smokin. Occup. exposure: none. Recreational drug use: no. Alcohol: Type: , Frequency: ,Years: , Determination:. Sexually active: yes. Travel ouside [place]: no. * Medications: T aking Clotrimazole-Betamethasone 1-0.05 % Cream 1 application Externally Twice a day , Medication List reviewed and reconciled with the patient * Allergies: N .K.D.A. Objective: * Vitals: W t: 175.8, Temp: 97.6, BP: 120/68, HR: 78, Nurse: john, Ht: 70.50, BMI:24.87. * Examination: G eneral Examination: General Appearance: N AD. H EENT: B oth external canals are free of wax. TMs appear normal.. N delgado: T here is an enlarged, tender left submandibular lymph node.. H eart: R SR. L ungs: c lear to auscultation. S kin: His back is covered with multiple seborrheic keratoses. . E xtremities: n o leg edema. * Physical Examination: G ENERAL: Pain Assessment: P ain level: 2, on a scale of 0-10 (with 10 being extreme pain). F unctional Status Assessment: P atient response to question of how often physical health interferes with daily activities: . Almost never Able to perform ADLs-including meal preparation, grocery shopping, housework, laundry, taking medications or handling finances. Cognitive Status: alert and oriented. Ambulation Status: Fully ambulatory . F all Risk Assessment: I ndependant in ambulation, adequate lighting in home. Patient has NOT fallen or had trouble walking within the past 12 months. D epression Screening: D enies depressed mood or anxiety. Describes emotional health as: positive. B ladder Control Screening: D enies problems. L ABS REVIEWED AND ARE SATISFACTORY. Assessment: * Assessment: 1. A dult general medical examination - Z00.00 (Primary) 2 . H epatic cyst - K76.89 3 . S K (seborrheic keratosis) - L82.1 4 . B KS 24.0-24.9, adult - Z68.24 Plan: * Treatment: Notes:Patient instructed to return to office Annually for Annual Wellness Visits to include annual screenings of Pain assessment, Functional Ability assessment, Cognitive Ability assessment, Fall Risk assessment, Depression screening and Bladder control screening.?? * Imaging: * I maging: colonoscopy (Performed Date - 01/16/2025) p t declined * Procedure Codes: G 0439 ANNUAL WELLNESS VST; PPS SUBSQT VST, G2211 Complex e/m visit add on, G0444 ANNUAL DEPRESSION SCREENING 15 MIN, 1090F PRES/ABSN URINE INCON ASSESS, 3288F FALL RISK ASSESSMENT DOCD, 1170F FXNL STATUS ASSESSED, 1126F AMNT PAIN NOTED NONE PRSNT, 1159F MED LIST DOCD IN RCRD, 1003F LEVEL OF ACTIVITY ASSESS, 3017F COLORECTAL CA SCREEN DOC REV, 1036F TOBACCO NON-USER, G8510 NEG SCR Depression PT NOT ELIG F/U/PLN DOC, 3074F SYST BP LT 130 MM HG, 3078F DIAST BP < 80 MM HG * Preventive Medicine: Counseling: E motional health: P atient encouraged to try connecting with family or friends to boost mood. B ladder control: M ethods of controlling or managing leakage of urine discussed. E xercise: P atient advised to start, increase or maintain level of exercise/physical activity. I njury prevention: F all prevention discussed. Discussed need for cane/walker. Potential trip hazards discussed. Immunizations: P neumococcal r ecommended. I nfluenza r ecommended seasonally. Screening / Special Tests: C olonoscopy , diverticulosis, hemorrhoids, repeat 3-5 years. P SA , normal. L lida cancer screening not suspicious for cancer, recommended annually due to smoking history. A AA screening r ecommended due to smoking history and age. * Follow Up: 1 Year * Images: Billing Information: * Visit Code: 74433 Office Visit, Est Pt., Level 3. Modifiers: 25 * Procedure Codes: G0439 ANNUAL WELLNESS VST; PPS SUBSQT VST. G2211 Complex e/m visit add on. G0444 ANNUAL DEPRESSION SCREENING 15 MIN. 1090F PRES/ABSN URINE INCON ASSESS. 3288F FALL RISK ASSESSMENT DOCD. 1170F FXNL STATUS ASSESSED. 1126F AMNT PAIN NOTED NONE PRSNT. 1159F MED LIST DOCD IN RCRD. 1003F LEVEL OF ACTIVITY ASSESS. 3017F COLORECTAL CA SCREEN DOC REV. 1036F TOBACCO NON-USER. G8510 NEG SCR Depression PT NOT ELIG F/U/PLN DOC. 3074F SYST BP LT 130 MM HG. 3078F DIAST BP < 80 MM HG. * Electronic signature of Ashley Dunaway MD on 04/12/2025 at 02:34 PM EDT Sign off status: Pending * Provider: Ashley Dunaway M.D. Date: 0 10/11/2024 Generated for Marlon cullen/Kassy/Beulahitting on: 0 04/12/2025 02:34 PM EDT History and Physical Notes * HPI (History of Present Illness) Category Sub-Category Detail Notes Category Not es HPI Patient is here today for a [facility] duled check up and a Medicare Annual Wellness Visit, see lab results drawn 10/03/2024 at [facility] lab. Pt sts he is doing well and has no concerns at this time Physical Examination Category Sub-Category Detail Notes Section Note s GENERAL Pain Assessment: Pain level: 2, on a scale of 0-10 (with 10 being extreme pain) LABS REVIEWED AND ARE SATISFACTORY Functional Status Assessment: Patient response to question of how often physical health interferes with daily activities: . Almost never Able to perform ADLs-including meal preparation, grocery shopping, housework, laundry, taking medications or handling finances. Cognitive Status: alert and oriented. Ambulation Status: Fully ambulatory Fall Risk Assessment: Independant in amb ulation, adequate lighting in home. Patient has NOT fallen or had trouble walking within the past 12 months Depression Screening: Denies depressed m ood or anxiety. Describes emotional health as: positive Bladder Control Screening: Denies proble ms Examination Category Sub-Category Detail Notes Category Not es General Examination HEENT: Both externa l canals are free of wax. TMs appear normal. Heart: RSR Lungs: clear to auscultatio n Extremities: no leg edema General Appearance: NAD Skin: His back is covered with multiple seborrheic keratoses. Neck: There is an enlarged , tender left submandibular lymph node.
[2025-04-12] VITALS (8 sets, daily range): BP systolic 105–145; BP diastolic 57–78; PULSE 62–70; RESP 11–18; TEMP 36.8; O2SAT 96–99; BMI 24.3
--- NOTE | 2025-04-12 14:24 | ECG_ITS ---
APPROVED REPORT Exam: Resting ECG HR:69 bpm ECG Measurements Heart Rate 69 AXES NC 160 P 63 QRSd 102 QRS -47 QT 406 T 15 QTc 425 Conclusion SINUS RHYTHM INCOMPLETE RIGHT BUNDLE BRANCH BLOCK [90+ ms QRS DURATION, TERMINAL R IN V1/V2, 40+ ms S IN I/aVL/V4/V5/V6] LEFT ANTERIOR FASCICULAR BLOCK [QRS AXIS <= -45, QR IN I, RS IN II] VOLTAGE CRITERIA FOR LVH [MEETS CRITERIA IN ONE OF: R(aVL), S(V1), R(V5), R(V5/V6)+S(V1)] POSSIBLE SEPTAL MYOCARDIAL INFARCTION , OF INDETERMINATE AGE [30 ms Q WAVE IN V1/V2] ABNORMAL ECG UNCONFIRMED REPORT ST elevations in aVL and V2 without reciprocal changes. Patient does have T wave inversions in lead III. No STEMI Electronically signed by : LORENZO MICHAUD, 04/12/2025 15:39:34
--- OUTSIDE RECORDS SUMMARY | 2025-04-12 14:34 | XMS_ITS | Clinical Summary ---
Author Organization [facility] Address [address] [place] [address] Care Team Providers Care Vacuum Frame Operator Name Role Phone Ted Dunaway MD Primary Care Provider [phone] Westley Gunter MD Unavailable [phone] Source Comments This information has been disclosed [...] therelease of HIV test results or diagnoses. [id number] Allergies No known active allergies Medications [...] file Insurance [employer] CHOICE PPO MEDICARE [address] [id number] Advance Directives For more information, please contact: [phone] * Full Code (Latest Code Status on File) Date Activated Date Inactivated Comments 08/13/2021 8:57 PM 08/19/2021 7:28 PM Question Answer Comments Intubate for Resp Distress: Yes Initiate CPR/ACLS in event of cardiac arrest: Flash mayo Care Teams Vacuum Frame Operator Relationship Specialty Start Date End Date Ted Dunaway MD [address] [place] [address] PCP - General Family Medicine 04/29/21 Westley Gunter MD [address] [place] [address] 05/13/21
--- OUTSIDE RECORDS SUMMARY | 2025-04-12 14:34 | XMS_ITS | Patient Health Record ---
[facility] [address] [facility] [address] [place] [phone] Care Team Providers Care Photo Retoucher Name Role Phone Ashley Dunaway Primary Care Provider Allergies No Known Allergies Results Component Value Reference Range Notes colonoscopy Reviewed date:01/19/2025 08:34:19 AM Interpretation:pt declined Performing Lab: Notes/Report: pt declined Ultrasound : Aorta Reviewed date:01/22/2025 09:32:29 PM Interpretation:Normal Performing Lab: Notes/Report: Normal H-CBC Reviewed date:10/11/2024 08:58:19 PM Interpretation:Normal Performing Lab: Notes/Report: WBC 6.8 4.8-10.8 K/mm3 RBC 4.78 4.60-6.20 M/mm3 HGB 14.3 14.1-18.0 g/dL HCT 42.5 42.0-52.0 % MCV 88.9 80-94 fl MCH 29.9 27.0-31.2 pg MCHC 33.6 31.8-35.4 g/dL RDW 11.9 11.5-17.5 % PLT 221 142-424 K/mm3 MPV 10.3 7.4-10.4 fl NE% 60.4 37.0-80.0 % LY% 25.0 10-50 % MO% 9.3 1.7-9.3 % EO% 4.0 0.1-12.0 % BA% 1.0 0.1-2.0 % NE# 4.1 1.8-7.8 K/mm3 LY# 1.7 0.7-4.5 K/mm3 MO# 0.6 0.1-1.0 K/mm3 EO# 0.3 0.0-0.4 K/mm3 BA# 0.1 0-0.2 K/mm3 H-Lipid Panel Reviewed date:10/11/2024 08:58:19 PM Interpretation:ldl 82 Performing Lab: Notes/Report: Patient Fasting? Y TRIG 109 30-150 mg/dl CHOL 184 140-200 mg/dl DLDL 82.33 100-129 mg/dL VLDL 22 0-40 mg/dL HDL 60 40-60 mg/dl CHLHDL 3.1 1-3.5 H-CMP Reviewed date:10/11/2024 08:58:19 PM Interpretation:gluc 110 Performing Lab: Notes/Report: NA 137 136-145 mmol/L K 4.3 3.5-5.1 mmoL/L CL 99 98-107 mmol/L CO2 32 22.0-30.0 mmol/L GAP 10.3 5-15 mEq/L BUN 35 9-20 mg/dl CREATT 1.00 0.66-1.25 mg/dl GFRAA 88 >60 ML/MIN EGFR 73 >60 ml/min GLU 110 74-100 mg/dl CA 9.3 8.4-10.2 mg/dl BILIT 0.7 0.2-1.3 mg/dl AST 40 17-59 U/L ALT 32 12-78 U/L TP 7.0 6.3-8.2 g/dl ALB 4.5 3.5-5.0 g/dl GLOB 2.5 1.3-3.2 g/dL AGRATIO 1.8 1.1-1.8 ALP 88 38-126 U/L H-PSA Reviewed date:10/11/2024 08:58:19 PM Interpretation:2.7 Performing Lab: Notes/Report: PSASC 2.7 0.0-4.0 ng/ml CT Scan : Chest, low dose Reviewed date:09/29/2024 09:40:04 AM Interpretation:stable large hepatic cyst, chronic pancreatitis, no suspicious lung nodule, annual checkup Performing Lab: Notes/Report: stable large hepatic cyst, chronic pancreatitis, no suspicious lung nodule, annual checkup H-PSA Reviewed date:10/03/2024 10:57:44 AM Interpretation: Performing Lab: Notes/Report: H-CMP Reviewed date:10/03/2024 09:00:39 AM Interpretation: Performing Lab: Notes/Report: H-Lipid Panel Reviewed date:10/03/2024 09:25:10 AM Interpretation: Performing Lab: Notes/Report: H-CBC Reviewed date:10/03/2024 09:24:49 AM Interpretation: Performing Lab: Notes/Report: Reason For Referral No Information Medications Medication SIG (Take, Route, Frequency, Duration) Notes Start Date End Date Status Clotrimazole-Betamethasone 1-0.05 % 1 application Externally Twice a day 08/04/2023 Active Immunizations Vaccine Route Administration Date Status Comme nts xFluzone Intradermal (18-64yrs)-trivalent ID Intradermal 06/16/2014 Administered Fluzone High Dose (65yr and older) IM Intramuscular 07/31/2017 Administered Fluzone High Dose (65yr and older) IM Intramuscular 05/19/2019 Administered Fluzone High Dose (65yr and older) Unknown 07/06/2023 Administered COVID 19 Pfizer Unknown 09/20/2020 Administered COVID 19 Moderna Unknown 05/27/2021 Administered Problems Problem Type SNOMED Code ICD Code Onset Dates Problem Status W/U Status Risk Notes Problem Cardiomegaly (8044566) LVH (left ventricular hypertrophy) (I51.7) Active confirmed Problem Hepatic cyst (29404368) Hepatic cyst (K76.89) Active confirmed Vital Signs Heart Rate 78 /min 10/11/2024 Blood pressure diastolic 68 mm Hg 10/11/2024 Height 70.50 in 10/11/2024 Blood pressure systolic 120 mm Hg 10/11/2024 Weight 175.8 lbs 10/11/2024 BMI 24.87 kg/m2 10/11/2024 Encounters Encounter Location Date Provider Diagnosis [facility] [address] [facility] [address] [place], [place] [id number] 10/11/2024 R Isaac Dunaway Adult general medica l examination Z00.00 ; Hepatic cyst K76.89 ; SK (seborrheic keratosis) L82.1 and BMI 24.0-24.9, adult Z68.24 [facility] [address] [facility] [address] [place], [place] [id number] 09/19/2024 R Isaac Dunaway Adult general medica l examination Z00.00 ; Hyperlipidemia, unspecified E78.5 and Screening for prostate cancer Z12.5 [facility] [address] [facility] [address] [place] [phone] 09/29/2024 Ashley Dunaway [facility] [address] [facility] [address] [facility] [address] [place] [phone] 01/22/2025 Ashley Dunaway Assessments Encounter Date Diagnosis (ICD Code) Assessment Notes Treatment Notes Treatment Clinical Notes Section Notes 10/11/2024 Adult general medical examination (ICD-10 - Z00.00) Patient instructed to return to office Annually for Annual Wellness Visits to include annual screenings of Pain assessment, Functional Ability assessment, Cognitive Ability assessment, Fall Risk assessment, Depression screening and Bladder control screening. 10/11/2024 Hepatic cyst (ICD-10 - K76.89) 09/19/2024 Adult general medical examination (ICD-10 - Z00.00) 10/11/2024 SK (seborrheic keratosis) (ICD-10 - L82.1) 10/11/2024 BMI 24.0-24.9, adult (ICD-10 - Z68.24) 09/19/2024 Hyperlipidemia, unspecified (ICD-10 - E78.5) 09/19/2024 Screening for prostate cancer (ICD-10 - Z12.5) Plan Of Treatment No Information Insurance Providers Payer Name Payer Address Payer Phone Subscriber Number Group Number Insured Name Patient Relationship to Insured Coverage Start Date Coverage End Date [employer] (MEDICAR E) [address] [address] [place] [address] [id number] Jose Carlos HARTMAN Self - patient is the insured Medical (General) History Medical History History ICD Code 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 Wendie Gan 03/09/2015 squamous cell removed from face-Dr Warren 07/2019 MILY procedure for chronic pancreatitis/ UC/ Dr. Bloom 08/2021 Excision of salivary duct stone 09/2024 Hospitalization History Reason Date(Month/Year) [facility] ER-laceration to right arm 07/21/17
--- OUTSIDE RECORDS SUMMARY | 2025-04-12 14:34 | XMS_ITS | Clinical Summary ---
Author Organization [facility] Address [address] [place] [address] Care Team Providers Care Finisher Wallboard And Plasterboard Name Role Phone Unavailable Primary Care Provider [...] [facility]-Depression Screening 1950 [facility]-Hepatitis C Screening 1950 [facility]-Infant/Child/Adol SDOH Screenings 1950 [facility]- SDOH Screenings 1968 [facility]-Adult SDOH Screenings 1968 [facility]-DTaP,Tdap,and Td Vaccines (1 - Tdap) 1969 CT Colonography 1995 Colonoscopy 1995 FIT-DNA 1995 FIT 1995 FOBT 1995 Sigmoidoscopy 1995 [facility]-Colorectal Cancer Screening 1995 [facility]-Pneumococcal Vaccine: 50+ Years (1 of 1 - PCV) 2000 [facility]-Zoster Vaccines (1 of 2) 2000 [facility]-RSV Vaccine: 60+ Years or (1 - 1-dose 75+ series) 2025 [id number] Vaccine ( season) 2025 07/06/2023, 05/27/2021, 09/20/2020, Additional history exists [facility]-Influenza Vaccine (#1) 2025 07/06/2023 HPV Vaccines Aged Out No [...]
--- NOTE | 2025-04-12 14:37 | XR_ITS ---
PROCEDURE INFORMATION: Exam: XR Chest Exam date and time: 04/12/2025 4:23 PM Age: 75 years old Clinical indication: Shortness of breath and other: SOA, dizziness, hypotension TECHNIQUE: Imaging protocol: Radiologic exam of the chest. Views: 2 views. Total images: 2 COMPARISON: CT LUNG SCREENING 09/22/2024 9:26 AM FINDINGS: Lungs: Atelectatic and/or early infiltrative changes right lung base. Pleural spaces: No pleural effusion. No pneumothorax. Heart/Mediastinum: No cardiomegaly. Diaphragm: There is nonspecific elevation of the right hemidiaphragm. Bones/joints: Unremarkable. IMPRESSION: Atelectatic and/or early infiltrative changes right lung base.
--- NOTE | 2025-04-12 14:40 | CT_ITS ---
PROCEDURE INFORMATION: Exam: CTA Neck With Contrast Exam date and time: 04/12/2025 4:27 PM Age: 75 years old Clinical indication: Syncope and collapse TECHNIQUE: Imaging protocol: Computed tomographic angiography of the neck with contrast. Exam focused on the cervical segments of the vasculature. 3D rendering (Not supervised by radiologist): MIP and/or 3D reconstructed images were created by the technologist. Radiation optimization: All CT scans at this facility use at least one of these dose optimization techniques: automated exposure control; mA and/or kV adjustment per patient size (includes targeted exams where dose is matched to clinical indication); or iterative reconstruction. Contrast material: ISOVUE 370; Contrast volume: 80 ml; Contrast route: INTRAVENOUS (IV); COMPARISON: CT SOFT TISSUE NECK WO CON 09/14/2023 1:07 PM FINDINGS: Right common carotid artery: No stenosis. No dissection or occlusion. Right internal carotid artery: Mild to moderate proximal right ICA calcified and noncalcified atherosclerosis does not contribute to stenosis. Right external carotid artery: No occlusion or stenosis of the origin. Left common carotid artery: No stenosis. No dissection or occlusion. Left internal carotid artery: Mild proximal left ICA calcified atherosclerosis does not contribute to stenosis. Left external carotid artery: No occlusion or stenosis of the origin. Right vertebral artery: No stenosis. No dissection or occlusion. Left vertebral artery: No stenosis. No dissection or occlusion. Soft tissues: Normal. No significant soft tissue swelling. Bones/joints: Mild levoconvex scoliosis. Severe cervical spine degenerative changes. At C3-C4, disc osteophyte complex, disc protrusion and posterior ligamentum flavum buckling in particular causing at least moderate central spinal canal stenosis. There are high-grade multilevel foraminal stenoses due to uncovertebral and facet arthropathy. IMPRESSION: 1. No acute vascular findings in the neck. 2. 0% right ICA stenosis. 3. 0% left ICA stenosis. 4. The vertebral arteries are patent without stenoses. REFERENCES: NASCET CRITERIA. The degree of stenosis in the cervical segment of the internal carotid artery is based on NASCET criteria. Normal is no stenosis. Mild is less than 50% stenosis. Moderate is 50-69% stenosis. Severe is 70% to 99% stenosis. Total occlusion is no detectable patent lumen.
--- NOTE | 2025-04-12 14:40 | CT_ITS ---
PROCEDURE INFORMATION: Exam: CTA Chest With Contrast Exam date and time: 04/12/2025 4:30 PM Age: 75 years old Clinical indication: Shortness of breath and other: Syncope; Additional info: SOA, syncope TECHNIQUE: Imaging protocol: Computed tomographic angiography of the chest with contrast. Exam focused on the arteries. 3D rendering (Not supervised by radiologist): MIP and/or 3D reconstructed images were created by the technologist. Radiation optimization: All CT scans at this facility use at least one of these dose optimization techniques: automated exposure control; mA and/or kV adjustment per patient size (includes targeted exams where dose is matched to clinical indication); or iterative reconstruction. Contrast material: ISOVUE 370; Contrast volume: 80 ml; Contrast route: INTRAVENOUS (IV); COMPARISON: CT LUNG SCREENING 09/22/2024 9:26 AM FINDINGS: Pulmonary arteries: No convincing evidence of pulmonary embolus. Aorta: Aortic calcification without aneurysm or dissection. Lungs: There are mild bilateral posterior dependent hypoventilatory changes. No alveolar consolidation. Pleural spaces: Unremarkable. No pneumothorax. No pleural effusion. Heart: Unremarkable. No cardiomegaly. No pericardial effusion. Coronary arteries: Coronary artery calcification. Lymph nodes: Calcified left hilar lymph nodes. Liver: Right hepatic cyst measures 9 cm. Pancreas: Atrophic pancreas with calcification. Bones/joints: Degenerative change involving the spine. Soft tissues: Unremarkable. IMPRESSION: 1. No acute abnormality involving the chest. 2. Nonemergent findings as above.
--- NOTE | 2025-04-12 14:40 | CT_ITS ---
PROCEDURE INFORMATION: Exam: CTA Head With Contrast, Arteriography Exam date and time: 04/12/2025 4:27 PM Age: 75 years old Clinical indication: Syncope and collapse TECHNIQUE: Imaging protocol: Computed tomographic angiography of the head with contrast. Exam focused on the arteries. 3D rendering (Not supervised by radiologist): MIP and/or 3D reconstructed images were created by the technologist. Radiation optimization: All CT scans at this facility use at least one of these dose optimization techniques: automated exposure control; mA and/or kV adjustment per patient size (includes targeted exams where dose is matched to clinical indication); or iterative reconstruction. Contrast material: ISOVUE 370; Contrast volume: 80 ml; Contrast route: INTRAVENOUS (IV); COMPARISON: CT HEAD/BRAIN WO CON 04/12/2025 4:25 PM FINDINGS: ANTERIOR CIRCULATION: Right internal carotid artery: Intracranial segment is patent with no significant stenosis. No aneurysm. Right middle cerebral artery: No occlusion or significant stenosis. No aneurysm. Right anterior cerebral artery: No occlusion or significant stenosis. No aneurysm. Left internal carotid artery: Intracranial segment is patent with no significant stenosis. No aneurysm. Left middle cerebral artery: No occlusion or significant stenosis. No aneurysm. Left anterior cerebral artery: No occlusion or significant stenosis. No aneurysm. POSTERIOR CIRCULATION: Right vertebral artery: No occlusion or significant stenosis. No aneurysm. Left vertebral artery: No occlusion or significant stenosis. No aneurysm. Basilar artery: No occlusion or significant stenosis. No aneurysm. Right posterior cerebral artery: No occlusion or significant stenosis. No aneurysm. Left posterior cerebral artery: No occlusion or significant stenosis. No aneurysm. Brain: No definite mass, mass effect, or midline shift. Cerebral ventricles: The ventricles are enlarged probably reflecting volume loss. Bones/joints: Unremarkable. No acute fracture. Soft tissues: Unremarkable. IMPRESSION: No proximal intracranial arterial occlusion or high-grade stenosis seen.
--- NOTE | 2025-04-12 14:40 | CT_ITS ---
PROCEDURE INFORMATION: Exam: CT Head Without Contrast Exam date and time: 04/12/2025 4:25 PM Age: 75 years old Clinical indication: Syncope and collapse TECHNIQUE: Imaging protocol: Computed tomography of the head without contrast. Radiation optimization: All CT scans at this facility use at least one of these dose optimization techniques: automated exposure control; mA and/or kV adjustment per patient size (includes targeted exams where dose is matched to clinical indication); or iterative reconstruction. COMPARISON: CT HEAD/BRAIN WO CON 04/12/2025 4:25 PM FINDINGS: Brain: Age-related involutional changes and chronic microvascular ischemic disease. No evidence for acute transcortical infarct. No mass effect or midline shift. No extra-axial collection. No acute intracranial hemorrhage. Basal cisterns are patent. Cerebral ventricles: No ventriculomegaly. Paranasal sinuses: Visualized sinuses are unremarkable. No fluid levels. Mastoid air cells: Visualized mastoid air cells are well aerated. Bones: Unremarkable. No acute fracture. Soft tissues: Unremarkable. IMPRESSION: No evidence for acute transcortical infarct, acute intracranial hemorrhage, or mass effect.
--- NOTE | 2025-04-12 14:43 | ED_ITS ---
<Statement entered by Rima Fernández DO - 04/12/25 20:37> I was consulted by the VILMA, and we discussed the complexity of problems being addressed. I approve the treatment and management plan for this patient's care in the emergency department, thus performing a substantial portion of the medical decision making. Rima Fernández DO <Statement entered by Saulo Abreu MD - 04/12/25 18:56> I was consulted by the VILMA, and we discussed the complexity of the problems being addressed. I approve the treatment and management plan for this patient's care in the emergency department, thus performing a substantive portion of the medical decision making. At this time, patient's care was handed off to the oncoming physician, Dr. Fernández, pending completion of his workup. Patient's ultimate disposition to be determined by VILMA Nix as well as Dr. Fernández after completion of his workup. Saulo Abreu MD Discharge Plan Disposition Patient Disposition: Home, Self-Care Condition: Good Referrals Follow up/Referrals: Ted Dunaway MD [Primary Care Provider, Medical] - See instructions Daron Lanza MD [Staff Physician, Cardiology] - See instructions Activity Restrictions/Add. Instructions Additional Instructions/Restrictions: Follow-up with PCP If any new symptoms or symptoms return return to the ER for eval Follow-up with Dr. Lanza on 04/13 at 9 AM Clinical Impressions Clinical Impression: Syncope Qualifiers: Syncope type: unspecified Qualified Code(s): R55 - Syncope and collapse Instructions Patient Instructions: DI for Syncope in Adults (Fainting) Print Language Print Language: Portuguese Discharge ED Provider: Saulo Abreu General Adult HPI <Nemesio Nix ([facility]), I&C TECH - Last Filed: 04/12/25 19:37> General Chief complaint: Syncope Stated complaint: [place], [place] Time Seen by Provider: 04/12/25 14:36 Mode of Arrival: Ambulatory Source of Information: Patient Description of Symptoms (Recalled from ER Triage Doc. by RN): patient presents to the ED for a syncopal episode that occured a few moments ago while playing golf. his golf friendss borught him in. Patient is alert and oriented x4. Patinet stated he has had this happen 5 other times and has lower blood pressure at home. History of Present Illness HPI narrative: 75-year-old male presents for a syncopal episode while playing golf. Patient states he had been dizzy on and off for the last couple days. Patient states today he was playing golf felt dizzy and had a syncopal episode lasting about 15 seconds and presents brought him to the ER for evaluation. Patient states that its happened a total of about 5 times and he has seen Dr. Dunaway for it. Patient denies any other symptoms Related Data Allergies Allergy/AdvReac Type Severity Reaction Status Date / Time No Known Allergies Allergy Verified 11/18/23 14:57 PFSH <Nemesio Nix ([facility]), I&C TECH - Last Filed: 04/12/25 19:37> PFS Disclaimer: The information contained in this section may have been updated after the patient was seen, as this information can be updated by other users. Medical History , I&C TECH) Submandibular sialoadenitis Social History , I&C TECH) Smoking Status: Smoker, status unknown alcohol intake: current alcohol intake frequency: holidays/special occasions only substance use type: denies use current occupational status: retired Travel in the last 8 weeks?: None housing: house Have you lived/traveled outside [place] in past 30 days?: No Contact w/someone who lives/traveled outside US past 30 days?: No Exposure to someone with infectious disease in past 14 days?: No Do you have a fever (greater than 100.4 F or 38 C)?: No Have you tested positive for COVID-19?: No Exposed to someone with COVID-19 in past 14 days?: No Do you have a sore throat?: No Do you have a cough?: No Do you have any weakness?: No Do you have any diarrhea?: No Are you experiencing any unusual bleeding?: No Do you have any muscle aches/pain?: No Do you have any abdominal pain?: No Are you experiencing loss of taste or smell?: No Other Medical History Have you received the Flu Vaccine for this season: Yes Have you received the Pneumonia Vaccine: No <[facility] I&C TECH - Last Filed: 04/12/25 19:37> ROS Obtained: Yes All systems reviewed & no additional complaints except as documented Constitutional Constitutional: Reports system reviewed and no additional complaints, except as documented, Reports as per HPI, Denies body ache, Denies chills, Denies fatigue, Denies fever(s), Denies frequent falls, Denies headache(s), Denies lethargy, Denies malaise and Denies weakness ENT Ears, Nose, Mouth, and Throat: Reports system reviewed and no additional complaints, except as documented, Reports dizziness and Denies headache(s) Cardiovascular Cardiovascular: Reports system reviewed and no additional complaints, except as documented, Denies chest pain, Denies chest pain at rest, Denies chest pain with activity and Denies dyspnea on exertion Respiratory Respiratory: Reports system reviewed and no additional complaints, except as documented, Reports as per HPI and Denies dyspnea on exertion Neurologic Neurologic: Reports system reviewed and no additional complaints, except as documented, Reports as per HPI, Denies confusion, Denies convulsions, Reports dizziness, Denies focal weakness, Denies frequent falls, Denies headache(s) and Denies weakness Endocrine Endocrine: Reports system reviewed and no additional complaints, except as documented and Denies fatigue Physical Exam <Nemesio Nix ([facility]), I&C TECH - Last Filed: 04/12/25 19:37> General General appearance: alert and in no apparent distress Head Head exam: atraumatic Eye Eye exam: Present normal appearance and PERRL ENT ENT exam: Present normal exam, normal oropharynx and TM's normal bilaterally Respiratory Respiratory exam: Present normal lung sounds bilaterally Cardiovascular Cardiovascular exam: Present regular rate and normal rhythm Neurological Exam Neurological exam: Present alert, oriented X3, CN II-XII intact and normal gait Skin Skin exam: Present warm Medical Decision Making <Nemesio Nix ([facility]), I&C TECH - Last Filed: 04/12/25 19:37> Medical Records Medical records reviewed: Yes I reviewed the patient's medical records. Screening: Per USPSTF and CDC recommendations, given the prevalence of disease in our region, it is our hospital?s policy to screen for HIV and viral Hepatitis for all patients aged 18 and over and those with ongoing risk factors. Juan Inquiry Pt receiving controlled substance: No Vital Signs: 04/12/25 14:22 04/12/25 15:15 04/12/25 15:30 Temperature 98.2 F Temperature Source Oral Pulse Rate 63 62 Pulse Rate [Right Radial] 70 Respiratory Rate 18 14 11 L Blood Pressure 116/57 L Blood Pressure [Right Arm] 105/57 L Blood Pressure Mean Blood Pressure Mean [Right Arm] 73 Blood Pressure Source Blood Pressure Source [Right Arm] Automatic Cuff Blood Pressure Position Blood Pressure Position [Right Arm] Sitting 02 Sat by Pulse Oximetry 99 98 96 Oxygen Delivery Method Room Air Room Air Room Air 04/12/25 16:00 04/12/25 16:15 04/12/25 17:00 Temperature Temperature Source Pulse Rate 64 64 62 Pulse Rate [Right Radial] Respiratory Rate 14 18 12 Blood Pressure 122/65 122/65 145/78 H Blood Pressure [Right Arm] Blood Pressure Mean Blood Pressure Mean [Right Arm] Blood Pressure Source Blood Pressure Source [Right Arm] Blood Pressure Position Blood Pressure Position [Right Arm] 02 Sat by Pulse Oximetry 99 97 98 Oxygen Delivery Method Room Air Room Air 04/12/25 19:43 04/12/25 19:46 Temperature 98.2 F Temperature Source Pulse Rate 67 Pulse Rate [Right Radial] Respiratory Rate 16 Blood Pressure 130/78 130/78 Blood Pressure [Right Arm] Blood Pressure Mean 90 Blood Pressure Mean [Right Arm] Blood Pressure Source Automatic Cuff Blood Pressure Source [Right Arm] Blood Pressure Position Sitting Blood Pressure Position [Right Arm] 02 Sat by Pulse Oximetry Oxygen Delivery Method Room Air Lab Data Lab results reviewed: Yes I reviewed the patient's lab results. Lab Results 04/12/25 15:50: WBC 10.4, RBC 4.44 L, Hgb 13.8 L, Hct 40.1 L, MCV 90.3, MCH 31.1, MCHC 34.4, RDW 12.1, Plt Count 216, MPV 10.5 H, Neut % (Auto) 85.9 H, L ymph % (Auto) 6.5 L, Castro % (Auto) 6.5, Eos % (Auto) 0.2, Baso % (Auto) 0.4, N eut # (Auto) 8.9 H, Lymph # (Auto) 0.7, Castro # (Auto) 0.7, Eos # (Auto) 0.0, Baso # (Auto) 0.0, Sodium 139, Potassium 4.1, Chloride 106, Carbon Dioxide 27, Anion Gap 10.1, BUN 32 H, Creatinine 1.30 H, Estimated Creat Clear 54, Estimated GFR 54 L, Est GFR ( Amer) 65, Glucose 70 L, Calcium 9.8, Total Bilirubin 0.6, AST 39, ALT 26, Alkaline Phosphatase 73, Troponin I < 0.01, NT-Pro-B Natriuret Pep 86.0, Total Protein 7.0, Albumin 4.3, Globulin 2.7, Albumin/Globulin Ratio 1.6, TSH 4.10, Free T4 1.47 04/12/25 18:45: Troponin I < 0.01 04/12/25 15:50 04/12/25 15:50 Orders (Tests/Meds): ED MEDICATIONS Discontinued Medications Generic Name Dose Route Start Last Admin Trade Name Freq PRN Reason Stop Dose Admin Iopamidol 80 ml 04/12/25 16:23 04/12/25 16:24 Iopamidol-370 (76%);100ml Bottle IV 04/12/25 16:24 80 ml ONCE ONE Administration Iopamidol 80 ml 04/12/25 16:24 04/12/25 16:25 Iopamidol-370 (76%);100ml Bottle IV 04/12/25 16:25 80 ml ONCE ONE Administration Sodium Chloride 10 ml 04/12/25 15:55 Sodium Chloride 0.9% 10ml Flush Syringe IV 05/12/25 15:54 NEEDED PRN Maintain IV Site Sodium Chloride 50 ml 04/12/25 16:23 04/12/25 16:24 0.9 % Sodium Chloride 50 Ml Vial IV 04/12/25 16:24 50 ml ONCE ONE Administration Sodium Chloride 10 ml 04/12/25 16:23 04/12/25 16:24 Sodium Chloride 0.9% 10ml Syr (Rad Only) IV 04/12/25 16:24 10 ml ONCE ONE Administration Sodium Chloride 50 ml 04/12/25 16:24 04/12/25 16:25 0.9 % Sodium Chloride 50 Ml Vial IV 04/12/25 16:25 50 ml ONCE ONE Administration ORDERS Category Date Time Status CT angio chest PE protocol Stat Cat Scan 04/12/25 14:[address] angio head Stat Cat Scan 04/12/25 14:[address] angio neck Stat Cat Scan 04/12/25 14:[address] head/brain wo con Stat Cat Scan 04/12/25 14:40 Completed Chest XR 2 view (NOT portable) [XR chest 2V] Stat Exams 04/12/25 14:37 Completed CBC w/Auto Diff [Complete Blood Count Auto Diff] Stat Lab 04/12/25 15:50 Completed CMP [Comprehensive Metabolic Panel] Stat Lab 04/12/25 15:50 Completed Free T4 (Free Thyroxine) Stat Lab 04/12/25 15:50 Completed NT Pro Brain Natriuretic Pep. Stat Lab 04/12/25 15:50 Completed TSH [Thyroid Stimulating Hormone] Stat Lab 04/12/25 15:50 Completed Trop I [Troponin I] Stat Lab 04/12/25 15:50 Completed Troponin I Q3H Lab 04/12/25 18:45 Completed Medical Decision Narrative: In summary patient is a 75-year-old male who presents to the emergency department for evaluation of syncopal. Patient is hemodynamically stable upon arrival, afebrile. Unremarkable physical exam. Differential diagnosis includes syncopal episode, CVA, vagal. Initial workup will be conducted with CT of the head and neck, labs, EKG, troponin,. Initial inventions include p.o. challenge. Initial workup reviewed by [facility] creatinine 1.3. Upon repeat evaluation patient laying in bed states he has no symptoms at this time at bedside. Given this patient states he does not want to stay in the hospital he has a visitation to go to [facility]. Follow-up with PCP <Rima Fernández, - Last Filed: 04/12/25 20:37> Vital Signs: 04/12/25 14:22 04/12/25 15:15 04/12/25 15:30 Temperature 98.2 F Temperature Source Oral Pulse Rate 63 62 Pulse Rate [Right Radial] 70 Respiratory Rate 18 14 11 L Blood Pressure 116/57 L Blood Pressure [Right Arm] 105/57 L Blood Pressure Mean Blood Pressure Mean [Right Arm] 73 Blood Pressure Source Blood Pressure Source [Right Arm] Automatic Cuff Blood Pressure Position Blood Pressure Position [Right Arm] Sitting 02 Sat by Pulse Oximetry 99 98 96 Oxygen Delivery Method Room Air Room Air Room Air 04/12/25 16:00 04/12/25 16:15 04/12/25 17:00 Temperature Temperature Source Pulse Rate 64 64 62 Pulse Rate [Right Radial] Respiratory Rate 14 18 12 Blood Pressure 122/65 122/65 145/78 H Blood Pressure [Right Arm] Blood Pressure Mean Blood Pressure Mean [Right Arm] Blood Pressure Source Blood Pressure Source [Right Arm] Blood Pressure Position Blood Pressure Position [Right Arm] 02 Sat by Pulse Oximetry 99 97 98 Oxygen Delivery Method Room Air Room Air 04/12/25 19:43 04/12/25 19:46 Temperature 98.2 F Temperature Source Pulse Rate 67 Pulse Rate [Right Radial] Respiratory Rate 16 Blood Pressure 130/78 130/78 Blood Pressure [Right Arm] Blood Pressure Mean 90 Blood Pressure Mean [Right Arm] Blood Pressure Source Automatic Cuff Blood Pressure Source [Right Arm] Blood Pressure Position Sitting Blood Pressure Position [Right Arm] 02 Sat by Pulse Oximetry Oxygen Delivery Method Room Air Lab Data Lab Results 04/12/25 15:50: WBC 10.4, RBC 4.44 L, Hgb 13.8 L, Hct 40.1 L, MCV 90.3, MCH 31.1, MCHC 34.4, RDW 12.1, Plt Count 216, MPV 10.5 H, Neut % (Auto) 85.9 H, L ymph % (Auto) 6.5 L, Castro % (Auto) 6.5, Eos % (Auto) 0.2, Baso % (Auto) 0.4, N eut # (Auto) 8.9 H, Lymph # (Auto) 0.7, Castro # (Auto) 0.7, Eos # (Auto) 0.0, Baso # (Auto) 0.0, Sodium 139, Potassium 4.1, Chloride 106, Carbon Dioxide 27, Anion Gap 10.1, BUN 32 H, Creatinine 1.30 H, Estimated Creat Clear 54, Estimated GFR 54 L, Est GFR ( Amer) 65, Glucose 70 L, Calcium 9.8, Total Bilirubin 0.6, AST 39, ALT 26, Alkaline Phosphatase 73, Troponin I < 0.01, NT-Pro-B Natriuret Pep 86.0, Total Protein 7.0, Albumin 4.3, Globulin 2.7, Albumin/Globulin Ratio 1.6, TSH 4.10, Free T4 1.47 04/12/25 18:45: Troponin I < 0.01 Orders (Tests/Meds): ED MEDICATIONS Discontinued Medications Generic Name Dose Route Start Last Admin Trade Name Freq PRN Reason Stop Dose Admin Iopamidol 80 ml 04/12/25 16:23 04/12/25 16:24 Iopamidol-370 (76%);100ml Bottle IV 04/12/25 16:24 80 ml ONCE ONE Administration Iopamidol 80 ml 04/12/25 16:24 04/12/25 16:25 Iopamidol-370 (76%);100ml Bottle IV 04/12/25 16:25 80 ml ONCE ONE Administration Sodium Chloride 10 ml 04/12/25 15:55 Sodium Chloride 0.9% 10ml Flush Syringe IV 05/12/25 15:54 NEEDED PRN Maintain IV Site Sodium Chloride 50 ml 04/12/25 16:23 04/12/25 16:24 0.9 % Sodium Chloride 50 Ml Vial IV 04/12/25 16:24 50 ml ONCE ONE Administration Sodium Chloride 10 ml 04/12/25 16:23 04/12/25 16:24 Sodium Chloride 0.9% 10ml Syr (Rad Only) IV 04/12/25 16:24 10 ml ONCE ONE Administration Sodium Chloride 50 ml 04/12/25 16:24 04/12/25 16:25 0.9 % Sodium Chloride 50 Ml Vial IV 04/12/25 16:25 50 ml ONCE ONE Administration ORDERS Category Date Time Status CT angio chest PE protocol Stat Cat Scan 04/12/25 14:[address] angio head Stat Cat Scan 04/12/25 14:[address] angio neck Stat Cat Scan 04/12/25 14:[address] head/brain wo con Stat Cat Scan 04/12/25 14:40 Completed Chest XR 2 view (NOT portable) [XR chest 2V] Stat Exams 04/12/25 14:37 Completed CBC w/Auto Diff [Complete Blood Count Auto Diff] Stat Lab 04/12/25 15:50 Completed CMP [Comprehensive Metabolic Panel] Stat Lab 04/12/25 15:50 Completed Free T4 (Free Thyroxine) Stat Lab 04/12/25 15:50 Completed NT Pro Brain Natriuretic Pep. Stat Lab 04/12/25 15:50 Completed TSH [Thyroid Stimulating Hormone] Stat Lab 04/12/25 15:50 Completed Trop I [Troponin I] Stat Lab 04/12/25 15:50 Completed Troponin I Q3H Lab 04/12/25 18:45 Completed Medical Decision Narrative: In summary patient is a 75-year-old male who presents to the emergency department for evaluation of syncopal episode. Patient is hemodynamically stable upon arrival, afebrile. Unremarkable physical exam. Differential diagnosis includes vagal syncope, cardiac syncope, orthostatic syncope, ACS/CO, cranial pathology, amongst others. Initial workup will be conducted with CT of the head and neck, labs, EKG, troponin and CT PE. Patient's labs were reviewed and interpreted by myself: CBC showed no leukocytosis, hemoglobin was stable. CMP was unremarkable. Initial troponin less than 0.01, second troponin less than 0.01. BNP normal. Thyroid studies unremarkable. CT head, CTA head and neck as well as CT PE showed no acute pathology. EKG showed some elevations in aVL and V2 but no reciprocal changes. No other acute ST or T wave changes concerning for ischemia. At this time, after further discussion with the patient, given no signs of vasovagal or orthostatic syncope at this time I felt the patient warranted admission for cardiac syncope. However, at this time, patient did not wish to be admitted for a syncope workup. Instead, patient was given an appointment with Dr. Lanza tomorrow morning at 9 AM for further workup. Patient was discharged home return precautions were discussed. Critical Care <Nemesio Nix ([facility]), I&C TECH - Last Filed: 04/12/25 19:37> Critical Care Time Critical Care Time: No
[2025-04-12 16:04] LABS: Hematocrit 40.1 % (42.0-52.0); Hemoglobin 13.8 g/dL (14.1-18.0); Immature Granulocytes % 0.5 %; Mean Corpuscular HGB Conc 34.4 g/dL (31.8-35.4); Mean Corpuscular Hemoglobin 31.1 pg (27.0-31.2); Mean Corpuscular Volume 90.3 fl (80-94); Nucleated Red Blood Cells % 0 %; Platelet Count 216 K/mm3 (142-424); Red Blood Count 4.44 M/mm3 (4.60-6.20); Red Cell Distribution Width-SD 40.1 fL; White Blood Count 10.4 K/mm3 (4.8-10.8)
[2025-04-12 16:11] LABS: Albumin Level 4.3 g/dl (3.5-5.0); Chloride 106 mmol/L (98-107); Potassium 4.1 mmoL/L (3.5-5.1); Sodium 139 mmol/L (136-145)
[2025-04-12 16:14] LABS: Alanine Aminotransferase 26 U/L (12-78); Albumin/Globulin Ratio 1.6 (1.1-1.8); Alkaline Phosphatase 73 U/L (38-126); Anion Gap 10.1 mEq/L (5-15); Aspartate Amino Transferase 39 U/L (17-59); Bilirubin,Total 0.6 mg/dl (0.2-1.3); Blood Urea Nitrogen 32 mg/dl (9-20); Calcium 9.8 mg/dl (8.4-10.2); Carbon Dioxide 27 mmol/L (22.0-30.0); Creatinine Clearance Estimated 54 mL/min (50-200); Creatinine,Serum 1.30 mg/dl (0.66-1.25); Estimated Glomerular Filt Rate 54 ml/min (>60); GFR (African American) 65 ML/MIN (>60); Globulin 2.7 g/dL (1.3-3.2); Glucose 70 mg/dl (74-100); Total Protein,Serum 7.0 g/dl (6.3-8.2)
[2025-04-12 16:23] LABS: NT Pro Brain Natriuretic Pep. 86.0 pg/mL (0-450)
[2025-04-12] MEDS: IOPAMIDOL-370 (76%);100ML BOTTLE 80 ML IV ×2 (16:24→16:25)
[2025-04-12] MEDS: 0.9 % SODIUM CHLORIDE 50 ML VIAL IV ×2 (16:24→16:25)
[2025-04-12] MEDS: SODIUM CHLORIDE 0.9% 10ML SYR (RAD ONLY) 10 ML IV (16:24)
[2025-04-12 16:34] LABS: Free T4 (Free Thyroxine) 1.47 ng/dl (0.78-2.19)
[2025-04-12 16:38] LABS: Troponin I < 0.01 ng/ml (0.00-0.034)
[2025-04-12 16:47] LABS: Thyroid Stimulating Hormone 4.10 uIU/mL (0.465-4.68)
[2025-04-12 19:34] LABS: Troponin I < 0.01 ng/ml (0.00-0.034)
== END 2025-04-12 19:47 | disposition home or self-care (01) ==
PROVIDERS: Nurse Practitioner Family; Emergency Provider Student in an Organized Health Care Education/Training Program; PCP Family Medicine
DX: R55 Syncope and collapse (principal); F17.210 Nicotine dependence, cigarettes, uncomplicated
CPT/HCPCS: 70450; 70496; 70498; 71046; 71275; 80053; 83880; 84439; 84443; 84484; 85025; 93005; 99284; 99285; Q9967